=== PATIENT | female | born 1965 | race African-American/Black ===

== ENCOUNTER 2017-07-15 19:33 | Emergency (ER) | payer MEDICARE, OTHER ==
[2017-07-15] MEDS: ACETAMINOPHEN 500 MG TABLET PO (20:18)
== END 2017-07-15 23:17 | disposition home or self-care (01) ==
LOC: ER 23:17
DX: M79.661 Pain in right lower leg (principal); I25.10 Atherosclerotic heart disease of native coronary artery without angina pectoris; E11.9 Type 2 diabetes mellitus without complications; I10 Essential (primary) hypertension; E78.00 Pure hypercholesterolemia, unspecified; Z79.899 Other long term (current) drug therapy; Z88.5 Allergy status to narcotic agent
CPT/HCPCS: 93971; 99284

== ENCOUNTER → 2019-05-01 | Outpatient (CLI) | payer MEDICARE ==
[2017-07-15 22:30] VITALS: BP 117/75
--- NOTE | 2019-05-01 10:04 | KCIC ---
Bilateral digital screening mammograms: Reason for examination: Routine baseline screening. Interpretation was made with the benefit of CAD. The skin and nipples show no abnormalities. No abnormal axillary lymph nodes are seen. The breast parenchyma shows scattered fibroglandular density. (Breast density: Category B.) There are no dominant masses, suspicious calcifications or architectural distortions. Impression: No evidence of malignancy. Recommend routine screening. BI-RADS Category 1: Negative. "Our facility is accredited by the [employer] Mammography Program." This patient's information has been entered into a reminder system for the patient to be notified with the results of her examination and a target date for the next mammogram. Electronically signed by: Bernice Palma MD (05/01/2019 10:01 AM) [id number]
== END | disposition home or self-care (01) ==
LOC: KCIC MAMMO 07:55
PROVIDERS: ATTEND Family Medicine
DX: Z12.31 Encounter for screening mammogram for malignant neoplasm of breast (principal)
CPT/HCPCS: 77067

== ENCOUNTER 2020-11-17 01:35 | Emergency (ER) | payer MEDICARE, OTHER ==
[~2020-11-17] VITALS: Ht 167.6 cm; Wt 98.0 kg
--- NOTE | 2020-11-17 07:15 | ED.ADGEN ---
Past Medical History Past Medical History: No Pertinent History, CAD, Diabetes-Type II, Hypertension Additional Past Medical Histor: HIGH CHOLESTEROL Past Surgical History: Other Additional Past Surgical Histo: uterine ablation, removed lump on back of head Smoking Status: Never Smoker Alcohol Use: None Drug Use: None General Adult EDM: Chief Complaint: FLANK PAIN HPI: HPI: Patient is a 55-year-old female who arrives [facility] complaining of left-sided flank pain. Patient reports his pain has been ongoing intermittently for several months. Patient reports she visited her primary care physician on Saturday and was referred to the emergency department because of "something wrong with her kidney". Patient states her pain is worse at night when she tries to sleep. Despite this, she denies any history of fever, prodromal symptoms or contributing symptoms otherwise. Specifically she denies any genitourinary changes or history of trauma. She is awake, alert and nontoxic-appearing Review of Systems: Review of Systems: Constitutional: Denies fever or chills. [] Eyes: Denies change in visual acuity. [] HENT: Denies nasal congestion or sore throat. [] Respiratory: Denies cough or shortness of breath. [] Cardiovascular: Denies chest pain or edema. [] GI: Denies abdominal pain, nausea, vomiting, bloody stools or diarrhea. [] : Reports flank pain. Denies dysuria. [] Musculoskeletal: Denies back pain or joint pain. [] Integument: Denies rash. [] Neurologic: Denies headache, focal weakness or sensory changes. [] Endocrine: Denies polyuria or polydipsia. [] Lymphatic: Denies swollen glands. [] Psychiatric: Denies depression or anxiety. [] Current Medications: Current Medications Medications (Trade) Dose Ordered Sig/Jocelyn Start Time Stop Time Status Last Admin Dose Admin Insulin Human Isoph/Insulin Regular (HumuLIN 70-30 VIAL) 20 units BID 11/17/20 10:00 11/17/20 09:48 20 UNITS Sodium Chloride 1,000 ml @ 1,000 mls/hr 1X ONCE 11/17/20 10:00 11/17/20 10:59 11/17/20 09:30 1,000 MLS/HR Allergies: Allergies: Allergies Coded Allergies Type Severity Reaction Last Updated Verified codeine Allergy Intermediate rash 02/27/13 Yes Physical Exam: PE: Constitutional: Well developed, well nourished, no acute distress, non-toxic appearance. [] HENT: Normocephalic, atraumatic, bilateral external ears normal, oropharynx moist, no oral exudates, nose normal. [] Eyes: PERRLA, EOMI, conjunctiva normal, no discharge. [] Neck: Normal range of motion, no tenderness, supple, no stridor. [] Cardiovascular:Heart rate regular rhythm, no murmur [] Lungs & Thorax: Bilateral breath sounds clear to auscultation [] Abdomen: Bowel sounds normal, soft, no tenderness, no masses, no pulsatile masses. [] Skin: Warm, dry, no erythema, no rash. [] Back: No tenderness, no CVA tenderness. [] Extremities: No tenderness, no cyanosis, no clubbing, ROM intact, no edema. [] Neurologic: Alert and oriented X 3, normal motor function, normal sensory function, no focal deficits noted. [] Psychologic: Affect normal, judgement normal, mood normal. [] Current Patient Data: Labs: Laboratory Tests Test 11/17/20 07:30 White Blood Count 5.6 x10^3/uL (4.0-11.0) Red Blood Count 3.45 x10^6/uL (3.50-5.40) L Hemoglobin 10.1 g/dL (12.0-15.5) L Hematocrit 30.4 % (36.0-47.0) L Mean Corpuscular Volume 88 fL (79-100) Mean Corpuscular Hemoglobin 29 pg (25-35) Mean Corpuscular Hemoglobin Concent 33 g/dL (31-37) Red Cell Distribution Width 12.6 % (11.5-14.5) Platelet Count 305 x10^3/uL (140-400) Neutrophils (%) (Auto) 53 % (31-73) Lymphocytes (%) (Auto) 32 % (24-48) Monocytes (%) (Auto) 12 % (0-9) H Eosinophils (%) (Auto) 2 % (0-3) Basophils (%) (Auto) 1 % (0-3) Neutrophils # (Auto) 2.9 x10^3/uL (1.8-7.7) Lymphocytes # (Auto) 1.8 x10^3/uL (1.0-4.8) Monocytes # (Auto) 0.7 x10^3/uL (0.0-1.1) Eosinophils # (Auto) 0.1 x10^3/uL (0.0-0.7) Basophils # (Auto) 0.1 x10^3/uL (0.0-0.2) Urine Collection Type Unknown Urine Color Yellow Urine Clarity Clear Urine pH 5.5 (<5.0-8.0) Urine Specific [place] 1.020 (1.000-1.030) Urine Protein >=300 mg/dL (NEG-TRACE) Urine Glucose (UA) >=1000 mg/dL (NEG) Urine Ketones (Stick) Negative mg/dL (NEG) Urine Blood Trace (NEG) Urine Nitrite Negative (NEG) Urine Bilirubin Negative (NEG) Urine Urobilinogen Dipstick 0.2 mg/dL (0.2 mg/dL) Urine Leukocyte Esterase Negative (NEG) Urine RBC Occ /HPF (0-2) Urine WBC 5-10 /HPF (0-4) Urine Squamous Epithelial Cells Mod /LPF Urine Bacteria Few /HPF (0-FEW) Urine Hyaline Casts Moderate /HPF Urine Mucus Slight /LPF Sodium Level 131 mmol/L (136-145) L Potassium Level 4.9 mmol/L (3.5-5.1) Chloride Level 97 mmol/L (98-107) L Carbon Dioxide Level 27 mmol/L (21-32) Anion Gap 7 (6-14) Blood Urea Nitrogen 50 mg/dL (7-20) H Creatinine 2.6 mg/dL (0.6-1.0) H Estimated GFR (Cockcroft-Gault) 23.2 Glucose Level 550 mg/dL (70-99) *H Calcium Level 9.1 mg/dL (8.5-10.1) Laboratory Tests 11/17/20 07:30 Laboratory Tests 11/17/20 07:30 Vital Signs: Vital Signs Date Time Temp Pulse Resp B/P (MAP) Pulse Ox O2 Delivery O2 Flow Rate FiO2 11/17/20 09:02 62 97/59 (72) 99 Room Air 11/17/20 05:00 98.0 16 98.0 EKG: EKG: [] Heart Score: C/O Chest Pain: No Risk Factors: Risk Factors: DM, Current or recent (<one month) smoker, HTN, HLP, family history of CAD, obesity. Risk Scores: Score 0 - 3: 2.5% MACE over next 6 weeks - Discharge Home Score 4 - 6: 20.3% MACE over next 6 weeks - Admit for Clinical Observation Score 7 - 10: 72.7% MACE over next 6 weeks - Early Invasive Strategies Radiology/Procedures: Radiology/Procedures: [] Impression: [facility] [address] [place] [address] IMAGING REPORT Signed PATIENT: NATE CORDERO ACCOUNT: [id number] : 1965 LOCATION: ER AGE: 55 SEX: F EXAM STATUS: REG ER ORD. PHYSICIAN: AMELIE DELATORRE DO REASON: Left flank pain PROCEDURE: CT ABDOMEN PELVIS WO CONTRAST INDICATION: Reason: Left flank pain / Spl. Instructions: / History: COMPARISON: None. TECHNIQUE: Axial CT images were obtained through the abdomen and pelvis without intravenous contrast. One or more of the following individualized dose reduction techniques were utilized for this examination: 1. Automated exposure control; 2. Adjustment of the mA and/or kV according to patient size; 3. Use of iterative reconstruction technique. FINDINGS: Small pericardial fluid. Vascular: Calcific atherosclerosis. Hepatobiliary: High density in the gallbladder could be secondary to gallstones. Liver is prominent in size. Pancreas: No peripancreatic edema. Spleen: Calcified granulomas. Renal: No hydronephrosis. Bladder: No definite inflammatory changes to the bladder. Gastrointestinal: The rectal wall is prominent in thickness but the rectum is not distended. Distal colon is decompressed which limits evaluation of the wall. No periappendiceal inflammatory changes. Edema of subcutaneous soft tissues. Degenerative changes the spine. Degenerative changes the spine with multilevel central canal and neural foraminal stenosis. Degenerative changes of sacroiliac joints. Degenerative changes of hips. There are some hypertrophic changes and erosions at the L5-S1 facet joint bilaterally. Enlarged uterus with heterogeneity and some calcifications within. Fat-containing umbilical hernia. IMPRESSION: * No hydronephrosis or radiopaque obstructive ureter stone. * No evidence of bowel obstruction or appendicitis. The rectal wall is prominent in thickness which could be from lack of distention but cannot exclude presence of proctitis or rectal wall lesion given this prominent wall. * Enlarged lobulated appearance of the uterus most commonly from fibroids. * Degenerative changes throughout the spine. Electronically signed by: Sarbjit Maddox MD (11/17/2020 9:12 AM) [id number] DICTATED and SIGNED BY: SARBJIT MADDOX MD DATE: 11/17/20 [id number] 0 Course & Med Decision Making: Course & Med Decision Making Pertinent Labs and Imaging studies reviewed. (See chart for details) The patient remains awake, alert and in no acute distress. CT imaging does not reveal any acute pathological condition with respect to the patient's left kidney. Patient does have what is been interpreted as possible inflammatory change in the rectal vault. Despite this, the patient does not have any complaints as a relates to this region. Moreover she denies any change in her bowel/bladder habits. I did speak with her primary care physician who referred her to the emergency department for glycemic control as well as study of her kidneys as they have been in decline and the patient is a very poorly controlled/noncompliant diabetic. As a result, I did offer the patient admission to the hospital for further study into her kidney function and the patient declined stating she would prefer to follow-up with her primary care physician. I advised that she return with any change to her condition. The patient understands and has agreed to do so. She is nontoxic-appearing and stable for discharge. [] Guru Disclaimer: Guru Disclaimer: This electronic medical record was generated, in whole or in part, using a voice recognition dictation system. Departure Departure Disposition: HOME / SELF CARE / HOMELESS Condition: STABLE Referrals: CHANDLER KOLB MD (PCP) Patient Instructions: Chronic Renal Insufficiency, Flank Pain, Hyperglycemia Additional Instructions: Please follow-up with your family physician later today. Scripts Hydrocodone/Acetaminophen (Hydrocodone-Acetamin 5-325 mg) 1 Each Tablet 1 EACH PO Q6HRS for 3 Days, #12 TAB Prov: AMELIE DELATORRE DO 11/17/20 AMELIE DELATORRE DO Nov 17, 2020 07:15
[2020-11-17 07:44] LABS: BASO # 0.1 x10^3/uL (0.0-0.2); BASO % 1 % (0-3); EOS # 0.1 x10^3/uL (0.0-0.7); EOS % 2 % (0-3); HEMATOCRIT 30.4 % (36.0-47.0); HEMOGLOBIN 10.1 g/dL (12.0-15.5); LYMPH # 1.8 x10^3/uL (1.0-4.8); LYMPH % 32 % (24-48); MEAN CORPUSCULAR HEMOGLOBIN 29 pg (25-35); MEAN CORPUSCULAR HGB CONC 33 g/dL (31-37); MEAN CORPUSCULAR VOLUME 88 fL (79-100); MONO # 0.7 x10^3/uL (0.0-1.1); MONO % 12 % (0-9); NEUT # 2.9 x10^3/uL (1.8-7.7); NEUT % 53 % (31-73); PLATELET COUNT 305 x10^3/uL (140-400); RED BLOOD COUNT 3.45 x10^6/uL (3.50-5.40); RED CELL DISTRIBUTION WIDTH 12.6 % (11.5-14.5); WHITE BLOOD COUNT 5.6 x10^3/uL (4.0-11.0)
[2020-11-17 07:51] LABS: BILIRUBIN,URINE NEGATIVE (NEG); CLARITY,URINE CLEAR; COLOR,URINE YELLOW; NITRITE,URINE NEGATIVE (NEG); PH,URINE 5.5 (<5.0-8.0); PROTEIN,URINE >=300 mg/dL (NEG-TRACE); UROBILINOGEN,URINE 0.2 mg/dL (0.2 mg/dL)
[2020-11-17 08:05] LABS: CALCIUM 9.1 mg/dL (8.5-10.1); CREATININE 2.6 mg/dL (0.6-1.0); GFR 23.2; POTASSIUM 4.9 mmol/L (3.5-5.1)
[2020-11-17 08:08] LABS: BACTERIA,URINE FEW /HPF (0-FEW); RBC,URINE OCC /HPF (0-2)
[2020-11-17 08:09] LABS: HYALINE CASTS, URINE MODERATE /HPF
--- NOTE | 2020-11-17 09:15 | RAD ---
INDICATION: Reason: Left flank pain / Spl. Instructions: / History: COMPARISON: None. TECHNIQUE: Axial CT images were obtained through the abdomen and pelvis without intravenous contrast. One or more of the following individualized dose reduction techniques were utilized for this examinat ion: 1. Automated exposure control; 2. Adjustment of the mA and/or kV according to patient size; 3 . Use of iterative reconstruction technique. FINDINGS: Small pericardial fluid. Vascular: Calcific atherosclerosis. Hepatobiliary: High density in the gallbladder could be secondary to gallstones. Liver is prominent i n size. Pancreas: No peripancreatic edema. Spleen: Calcified granulomas. Renal: No hydronephrosis. Bladder: No definite inflammatory changes to the bladder. Gastrointestinal: The rectal wall is prominent in thickness but the rectum is not distended. Distal c olon is decompressed which limits evaluation of the wall. No periappendiceal inflammatory changes. Ed radu of subcutaneous soft tissues. Degenerative changes the spine. Degenerative changes the spine with multilevel central canal and neural foraminal stenosis. Degenerat mae changes of sacroiliac joints. Degenerative changes of hips. There are some hypertrophic changes a nd erosions at the L5-S1 facet joint bilaterally. Enlarged uterus with heterogeneity and some calcifications within. Fat-containing umbilical hernia. IMPRESSION: * No hydronephrosis or radiopaque obstructive ureter stone. * No evidence of bowel obstruction or appendicitis. The rectal wall is prominent in thickness which could be from lack of distention but cannot exclude presence of proctitis or rectal wall lesion given this prominent wall. * Enlarged lobulated appearance of the uterus most commonly from fibroids. * Degenerative changes throughout the spine. Electronically signed by: Jose Kendrick MD (11/17/2020 9:12 AM) [id number]
[2020-11-17] MEDS ORDERED: HYDR-2759 PO (09:50)
[2020-11-17] MEDS ORDERED: INSULIN NPH/REG HUM 70/30 300 UNITS/3 ML VIAL. SQ SCH (10:00)
[2020-11-17] MEDS ORDERED: IV NORMAL SALINE 1000ML BAG 1,000 ML IV ONE (10:00)
[2020-11-17 10:02] VITALS: BP 143/75
== END 2020-11-17 10:30 | disposition home or self-care (01) ==
LOC: ER 01:35
DX: R10.9 Unspecified abdominal pain (principal); I25.10 Atherosclerotic heart disease of native coronary artery without angina pectoris; E11.9 Type 2 diabetes mellitus without complications; I10 Essential (primary) hypertension; E78.00 Pure hypercholesterolemia, unspecified; Z88.5 Allergy status to narcotic agent
CPT/HCPCS: 36415; 74176; 80048; 81001; 85025; 87086; 96360; 96372; 99284; J1815; J7030; 87077

== ENCOUNTER 2020-11-29 12:41 | Inpatient (IN) | payer OTHER ==
[~2020-11-29] VITALS: Ht 167.6 cm; Wt 105.8 kg
[~2020-11-29 12:41] MED LIST: HYDR-2759 PO
[2020-11-29 13:38] LABS: BILIRUBIN,URINE NEGATIVE (NEG); CLARITY,URINE CLEAR; COLOR,URINE YELLOW; NITRITE,URINE NEGATIVE (NEG); PROTEIN,URINE >=300 mg/dL (NEG-TRACE); UROBILINOGEN,URINE 0.2 mg/dL (0.2 mg/dL)
--- NOTE | 2020-11-29 13:48 | RAD ---
EXAM: CHEST 1 VIEW History: Shortness of breath COMPARISON: 04/19/2016. TECHNIQUE: Single portable radiograph of the chest Findings/ impression: Low lung volumes and technique accentuates heart size and pulmonary vascularity. Mild prominent bilat eral digital lung markings likely mild congestive changes or interstitial infiltrates. Electronically signed by: Michael Segura MD (11/29/2020 1:46 PM) [id number]
[2020-11-29 13:53] LABS: BACTERIA,URINE MODERATE /HPF (0-FEW)
[2020-11-29 13:54] LABS: WBC,URINE OCC /HPF (0-4)
[2020-11-29 14:04] LABS: BASO % 1 % (0-3); EOS # 0.3 x10^3/uL (0.0-0.7); EOS % 3 % (0-3); HEMATOCRIT 26.3 % (36.0-47.0); HEMOGLOBIN 8.9 g/dL (12.0-15.5); LYMPH % 10 % (24-48); MEAN CORPUSCULAR HEMOGLOBIN 29 pg (25-35); MEAN CORPUSCULAR HGB CONC 34 g/dL (31-37); MEAN CORPUSCULAR VOLUME 86 fL (79-100); MONO # 0.8 x10^3/uL (0.0-1.1); MONO % 7 % (0-9); NEUT # 8.2 x10^3/uL (1.8-7.7); NEUT % 80 % (31-73); PLATELET COUNT 392 x10^3/uL (140-400); RED BLOOD COUNT 3.06 x10^6/uL (3.50-5.40); RED CELL DISTRIBUTION WIDTH 13.3 % (11.5-14.5); WHITE BLOOD COUNT 10.3 x10^3/uL (4.0-11.0)
[2020-11-29 14:21] LABS: CALCIUM 8.6 mg/dL (8.5-10.1); GFR 31.4; POTASSIUM 4.9 mmol/L (3.5-5.1)
[2020-11-29 14:26] LABS: INFLUENZA A PATIENT NEGATIVE (NEGATIVE); INFLUENZA B PATIENT NEGATIVE (NEGATIVE)
[2020-11-29 14:34] LABS: ALBUMIN 2.5 g/dL (3.4-5.0); ALBUMIN/GLOBULIN RATIO 0.5 (1.0-1.7); MAGNESIUM 1.8 mg/dL (1.8-2.4); TOTAL BILIRUBIN 0.8 mg/dL (0.2-1.0); TOTAL PROTEIN 7.1 g/dL (6.4-8.2)
--- NOTE | 2020-11-29 14:34 | PHYS DOC ---
Past Medical History Past Medical History: No Pertinent History, CAD, Diabetes-Type II, Hypertension Additional Past Medical Histor: HIGH CHOLESTEROL Past Surgical History: Other Additional Past Surgical Histo: uterine ablation, removed lump on back of head Smoking Status: Never Smoker Alcohol Use: None Drug Use: None General Adult EDM: Chief Complaint: SHORTNESS OF BREATH HPI: HPI: Patient is a 55 year old female who present to ER for evaluation of trouble breathing with exertion, nonproductive cough since yesterday. Patient denies any fever. Patient had Covid vaccine in May of this year. Patient denies abdominal pain, no nausea vomiting. Patient has history hypertension, coronary artery disease. Patient did complain of trouble breathing whenever she exerted herself. Patient does complain of sharp chest pain when she coughs or taking deep breaths Review of Systems: Review of Systems: Constitutional: Denies fever or chills. [] Eyes: Denies change in visual acuity. [] HENT: Denies nasal congestion or sore throat. [] Respiratory: Positive for nonproductive cough and trouble breathing Cardiovascular: Positive for chest pain and edema GI: Denies abdominal pain, nausea, vomiting, bloody stools or diarrhea. [] : Denies dysuria. [] Musculoskeletal: Denies back pain or joint pain. [] Integument: Denies rash. [] Neurologic: Denies headache, focal weakness or sensory changes. [] Endocrine: Denies polyuria or polydipsia. [] Lymphatic: Denies swollen glands. [] Psychiatric: Denies depression or anxiety. [] Heart Score: C/O Chest Pain: Yes HEART Score for Chest Pain: HEART Score for Chest Pain Response (Comments) Value History Slighlty/Non-Suspicious 0 ECG Nonspecific Repolarizatio 1 Age >45 - < 65 1 Risk Factors >3 Risk Factors or Hx CAD 2 Troponin >1-<3x Normal Limit 1 Total 5 Risk Factors: Risk Factors: DM, Current or recent (<one month) smoker, HTN, HLP, family history of CAD, obesity. Risk Scores: Score 0 - 3: 2.5% MACE over next 6 weeks - Discharge Home Score 4 - 6: 20.3% MACE over next 6 weeks - Admit for Clinical Observation Score 7 - 10: 72.7% MACE over next 6 weeks - Early Invasive Strategies Allergies: Allergies: Allergies Coded Allergies Type Severity Reaction Last Updated Verified codeine Allergy Intermediate rash 02/27/13 Yes Physical Exam: PE: Constitutional: Well developed, well nourished, no acute distress, non-toxic appearance. [] HENT: Normocephalic, atraumatic, bilateral external ears normal, oropharynx moist, no oral exudates, nose normal. [] Eyes: PERRLA, EOMI, conjunctiva normal, no discharge. [] Neck: Normal range of motion, no tenderness, supple, no stridor. [] Cardiovascular:Heart rate regular rhythm, no murmur [] Lungs & Thorax: Bilateral breath sounds clear to auscultation [] Abdomen: Bowel sounds normal, soft, no tenderness, no masses, no pulsatile masses. [] Skin: Warm, dry, no erythema, no rash. [] Back: No tenderness, no CVA tenderness. [] Extremities: No tenderness, no cyanosis, no clubbing, ROM intact, pitting edema 2+ bilateral legs Neurologic: Alert and oriented X 3, normal motor function, normal sensory function, no focal deficits noted. [] Psychologic: Affect normal, judgement normal, mood normal. [] Current Patient Data: Labs: Laboratory Tests Test 11/29/20 13:05 11/29/20 13:50 Urine Collection Type Unknown Urine Color Yellow Urine Clarity Clear Urine pH 7.0 (<5.0-8.0) Urine Specific [place] 1.015 (1.000-1.030) Urine Protein >=300 mg/dL (NEG-TRACE) Urine Glucose (UA) >=1000 mg/dL (NEG) Urine Ketones (Stick) Negative mg/dL (NEG) Urine Blood Moderate (NEG) Urine Nitrite Negative (NEG) Urine Bilirubin Negative (NEG) Urine Urobilinogen Dipstick 0.2 mg/dL (0.2 mg/dL) Urine Leukocyte Esterase Negative (NEG) Urine RBC 3-5 /HPF (0-2) Urine WBC Occ /HPF (0-4) Urine Squamous Epithelial Cells Few /LPF Urine Bacteria Moderate /HPF (0-FEW) White Blood Count 10.3 x10^3/uL (4.0-11.0) Red Blood Count 3.06 x10^6/uL (3.50-5.40) L Hemoglobin 8.9 g/dL (12.0-15.5) L Hematocrit 26.3 % (36.0-47.0) L Mean Corpuscular Volume 86 fL (79-100) Mean Corpuscular Hemoglobin 29 pg (25-35) Mean Corpuscular Hemoglobin Concent 34 g/dL (31-37) Red Cell Distribution Width 13.3 % (11.5-14.5) Platelet Count 392 x10^3/uL (140-400) Neutrophils (%) (Auto) 80 % (31-73) H Lymphocytes (%) (Auto) 10 % (24-48) L Monocytes (%) (Auto) 7 % (0-9) Eosinophils (%) (Auto) 3 % (0-3) Basophils (%) (Auto) 1 % (0-3) Neutrophils # (Auto) 8.2 x10^3/uL (1.8-7.7) H Lymphocytes # (Auto) 1.0 x10^3/uL (1.0-4.8) Monocytes # (Auto) 0.8 x10^3/uL (0.0-1.1) Eosinophils # (Auto) 0.3 x10^3/uL (0.0-0.7) Basophils # (Auto) 0.0 x10^3/uL (0.0-0.2) Sodium Level 134 mmol/L (136-145) L Potassium Level 4.9 mmol/L (3.5-5.1) Chloride Level 101 mmol/L (98-107) Carbon Dioxide Level 21 mmol/L (21-32) Anion Gap 12 (6-14) Blood Urea Nitrogen 43 mg/dL (7-20) H Creatinine 2.0 mg/dL (0.6-1.0) H Estimated GFR (Cockcroft-Gault) 31.4 BUN/Creatinine Ratio 22 (6-20) H Glucose Level 445 mg/dL (70-99) H Lactic Acid Level 1.9 mmol/L (0.4-2.0) Calcium Level 8.6 mg/dL (8.5-10.1) Magnesium Level Pending Total Bilirubin Pending Aspartate Amino Transferase (AST) Pending Alanine Aminotransferase (ALT) Pending Alkaline Phosphatase Pending Troponin I Quantitative 0.109 ng/mL (0.000-0.055) GV-Szo-E-Type Natriuretic Peptide 3473 pg/mL (0-124) H Total Protein Pending Albumin Pending Albumin/Globulin Ratio Pending Influenza Type A Antigen Negative (NEGATIVE) Influenza Type B Antigen Negative (NEGATIVE) SARS-CoV-2 Antigen (Rapid) Negative (NEGATIVE) Laboratory Tests 11/29/20 13:50 Laboratory Tests 11/29/20 13:50 Vital Signs: Vital Signs Date Time Temp Pulse Resp B/P (MAP) Pulse Ox O2 Delivery O2 Flow Rate FiO2 11/29/20 13:05 98.6 123 32 212/100 (137) 88 Room Air 98.6 EKG: EKG: EKG was done at 1606, heart rate of 125 bpm, sinus tachycardia, no ST segment elevation. Radiology/Procedures: Radiology/Procedures: [facility] [address] [place] [address] IMAGING REPORT Signed PATIENT: NATE CORDERO ACCOUNT: [id number] : 1965 LOCATION: ER AGE: 55 SEX: F EXAM STATUS: REG ER ORD. PHYSICIAN: STEPHY MERA DO REASON: shortness of air PROCEDURE: CHEST AP ONLY EXAM: CHEST 1 VIEW History: Shortness of breath COMPARISON: 04/19/2016. TECHNIQUE: Single portable radiograph of the chest Findings/ impression: Low lung volumes and technique accentuates heart size and pulmonary vascularity. Mild prominent bilateral digital lung markings likely mild congestive changes or interstitial infiltrates. Electronically signed by: Michael Segura MD (11/29/2020 1:46 PM) [id number] DICTATED and SIGNED BY: MICHAEL SEGURA MD DATE: 11/29/20 [id number] 0 Course & Med Decision Making: Course & Med Decision Making Pertinent Labs and Imaging studies reviewed. (See chart for details) Patient is a 55-year-old female who present to ER due to trouble breathing congestion, nonproductive cough, patient was found to be hypertensive, chest x-ray showed pulmonary edema pattern, patient had elevated BNP and troponin. EKG showed no ST segment elevation. Patient will be admitted to hospital service for further evaluation and treatment. Discussed with the hospitalist on-call Dr. Hoyt who agreed to admit the patient Guru Disclaimer: Guru Disclaimer: This electronic medical record was generated, in whole or in part, using a voice recognition dictation system. Departure Departure Impression: Primary Impression: CHF exacerbation Additional Impression: Hypertensive urgency Disposition: 09 ADMITTED INPATIENT Admitting Physician: WILLOW (Dr. Addy Gabriel ) Condition: IMPROVED Referrals: CHANDLER KOLB MD (PCP) STEPHY MERA DO Nov 29, 2020 14:34
[2020-11-29] MEDS ORDERED: hydrALAZINE 20 MG/ML VIAL. IVP ONE (14:45)
--- NOTE | 2020-11-29 15:06 | PDOC1 ---
History and Physical Date of Admission Date of Admission DATE: 11/29/20 TIME: 15:05 Identification/Chief Complaint Chief Complaint Shortness of breath Source Source: Patient History of Present Illness History of Present Illness Ms Paul is a 55 year old female w/ PMHx DM2, HTN, HLD, glaucoma who present to ER c/o progressive difficulty breathing with exertion and now at rest. She has had a white frothy cough for the last day. Patient denies any fever. She has had progressive weight gain, difficulty controlling her blood sugar and swelling of her abdomen and legs for the past month. No recent travel or sick co ntacts, no prolonged immobilization. Patient denies abdominal pain, no nausea vomiting. She does notice abdominal swelling associated with her leg swelling or shortness of breath. Difficulty getting a deep breath. Had [employer] vaccine in May 2020. She does note based on recent labs she was told she has kidney injury and had a referral to outpatient nephrology coming up 12/02/2020 Initial vital signs temp 98.6 F pulse 123 beats minute respirations 32/min blood pressure 212/110 O2 saturation less than 88% on room air improved to 92% with 2 L nasal cannula oxygen. Given IV hydralazine with improvement of systolic blood pressure 184/89. Of note patient says she did not take any of her home medications today and does take metoprolol succinate 100 mg, amlodipine 10 mg, atorvastatin 80 mg, gabapentin 300 mg 3 times daily, chlorthalidone 50 mg daily, losartan 100 mg daily, Metformin 1000 mg twice daily, lispro 40 U every morning and Levemir 70 U nightly Travatan and latanoprost nightly and a baby aspirin daily. Labs with WBC 10.3, Hb 8.9, platelets 392, NA 134, K4.9, BUN 43, CR 2, glucose 445, albumin 2.5, lactate 1.9, NT proBNP 3473, troponin 0.109, rapid influenza negative, rapid COVID-19 negative, urinalysis with glucosuria proteinuria blood negative leuk esterase negative nitrites. Chest radiograph with bilateral interstitial changes consistent with congestion. EKG sinus tachycardia rate of 125 bpm T WI in lead I and T flattening in lead II no ST segment abnormalities. QTc 435. Admitted for further care. Past Medical History Cardiovascular: HTN, Hyperlipidemia ENT: Allergic Rhinitis Endocrine: Diabetes Past Surgical History Past Surgical History: Other (Uterine ablation, I&D head abscess) Family History Family History: Diabetes, Heart Disease (Mother), High Cholestrol, Hypertension Social History Smoke: No ALCOHOL: none Drugs: None Current Problem List Problem List Problems Medical Problems: (1) CHF exacerbation Status: Acute (2) Hypertensive urgency Status: Acute Current Medications Current Medications Current Medications Hydralazine HCl (Apresoline Inj) 20 mg 1X ONCE IVP Last administered on 11/29/20at 14:56; Start 11/29/20 at 14:45; Stop 11/29/20 at 14:46; Status DC Active Scripts Active Hydrocodone-Acetamin 5-325 mg (Hydrocodone/Acetaminophen) 1 Each Tablet 1 Each PO Q6HRS 3 Days Allergies Allergies: Coded Allergies: codeine (Verified Allergy, Intermediate, rash, 02/27/13) ROS General: YES: Fatigue; No: Chills, Night Sweats, Malaise, Appetite, Other PSYCHOLOGICAL ROS: No: Anxiety, Behavioral Disorder, Concentration difficultie, Decreased libido, Depression, Disorientation, Hallucinations, Hostility, Irritablity, Memory difficulties, Mood Swings, Obsessive thoughts, Physical abuse, Sexual abuse, Sleep disturbances, Suicidal ideation, Other Eyes: No Blurry vision, No Decreased vision, No Double vision, No Dry eyes, No Excessive tearing, No Eye Pain, No Itchy Eyes, No Loss of vision, No Photophobia, No Scotomata, No Uses contacts, No Uses glasses, No Other HEENT: No: Heacaches, Visual Changes, Hearing change, Nasal congestion, Nasal discharge, Oral lesions, Sinus pain, Sore Throat, Epistaxis, Sneezing, Snoring, Tinnitus, Vertigo, Vocal changes, Other ALLERGY AND IMMUNOLOGY: No: Hives, Insect Bite Sensitivity, Itchy/Watery Eyes, Nasal Congestion, Post Nasal Drip, Seasonal Allergies, Other Hematological and Lymphatic: No: Bleeding Problems, Blood Clots, Blood Transfusions, Brusing, Night Sweats, Pallor, Swollen Lymph Nodes, Other ENDOCRINE: No: Breast Changes, Galactorrhea, Hair Pattern Changes, Hot Flashes, Malaise/lethargy, Mood Swings, Palpitations, Polydipsia/polyuria, Skin Changes, Temperature Intolerance, Unexpected Weight Changes, Other Breast: No New/Changing Breast Lumps, No Nipple changes, No Nipple discharge, No Other Respiratory: YES: Cough, Pleuritic Pain, Shortness of breath, SOB with excertion, Tachypnea; No: Hemoptysis, Orthopnea, Sputum Changes, Stridor, Wheezing, Other Cardiovascular: yes Orthopnea, yes Paroxysmal Noc. Dyspnea, yes Edema; No Chest Pain, No Palpitations, No Lt Headedness, No Other Gastrointestinal: No Nausea, No Vomiting, No Abdominal Pain, No Diarrhea, No Constipation, No Melena, No Hematochezia, No Other Genitourinary: No Dysuria, No Frequency, No Incontinence, No Hematuria, No Retention, No Discharge, No Urgency, No Pain, No Flank Pain, No Other, No , No , No , No , No , No , No Musculoskeletal: No Gait Disturbance, No Joint Pain, No Joint Stiffness, No Joint Swelling, No Muscle Pain, No Muscular Weakness, No Pain In:, No Swelling In:, No Other Neurological: No Behavorial Changes, No Bowel/Bladder ControlChng, No Confusion, No Dizziness, No Gait Disturbance, No Headaches, No Impaired Coord/balance, No Memory Loss, No Numbness/Tingling, No Seizures, No Speech Problems, No Tremors, No Visual Changes, No Weakness, No Other Skin: No Dry Skin, No Eczema, No Hair Changes, No Lumps, No Mole Changes, No Mottling, No Nail Changes, No Pruritus, No Rash, No Skin Lesion Changes, No Other, No Acne Physical Exam General: Alert, Oriented X3, Cooperative, moderate distress HEENT: Atraumatic, PERRLA, EOMI, Mucous membr. moist/pink Lungs: Other (bibasilar crakles) Heart: S1S2, RRR, no thrills, no rubs, no gallops, no murmurs Abdomen: Normal bowel sounds, Soft, No tenderness, No hepatosplenomegaly, No masses Extremities: No clubbing, No cyanosis, Normal pulses, No tenderness/swelling, Other (2+ edema) Skin: No rashes, No breakdown, No significant lesion Neuro: Normal gait, Normal speech, Strength at 5/5 X4 ext, Normal tone, Sensation intact, Cranial nerves 3-12 NL, Reflexes 2+ Psych/Mental Status: Mental status NL, Mood NL Vitals Vitals Vital Signs Date Time Temp Pulse Resp B/P (MAP) Pulse Ox O2 Delivery O2 Flow Rate FiO2 10//21 14:56 110 184/89 11/29/20 13:05 98.6 32 88 Room Air 98.6 Labs Labs Laboratory Tests Test 11/29/20 13:05 11/29/20 13:50 Urine Collection Type Unknown Urine Color Yellow Urine Clarity Clear Urine pH 7.0 (<5.0-8.0) Urine Specific [place] 1.015 (1.000-1.030) Urine Protein >=300 mg/dL (NEG-TRACE) Urine Glucose (UA) >=1000 mg/dL (NEG) Urine Ketones (Stick) Negative mg/dL (NEG) Urine Blood Moderate (NEG) Urine Nitrite Negative (NEG) Urine Bilirubin Negative (NEG) Urine Urobilinogen Dipstick 0.2 mg/dL (0.2 mg/dL) Urine Leukocyte Esterase Negative (NEG) Urine RBC 3-5 /HPF (0-2) Urine WBC Occ /HPF (0-4) Urine Squamous Epithelial Cells Few /LPF Urine Bacteria Moderate /HPF (0-FEW) White Blood Count 10.3 x10^3/uL (4.0-11.0) Red Blood Count 3.06 x10^6/uL (3.50-5.40) Hemoglobin 8.9 g/dL (12.0-15.5) Hematocrit 26.3 % (36.0-47.0) Mean Corpuscular Volume 86 fL (79-100) Mean Corpuscular Hemoglobin 29 pg (25-35) Mean Corpuscular Hemoglobin Concent 34 g/dL (31-37) Red Cell Distribution Width 13.3 % (11.5-14.5) Platelet Count 392 x10^3/uL (140-400) Neutrophils (%) (Auto) 80 % (31-73) Lymphocytes (%) (Auto) 10 % (24-48) Monocytes (%) (Auto) 7 % (0-9) Eosinophils (%) (Auto) 3 % (0-3) Basophils (%) (Auto) 1 % (0-3) Neutrophils # (Auto) 8.2 x10^3/uL (1.8-7.7) Lymphocytes # (Auto) 1.0 x10^3/uL (1.0-4.8) Monocytes # (Auto) 0.8 x10^3/uL (0.0-1.1) Eosinophils # (Auto) 0.3 x10^3/uL (0.0-0.7) Basophils # (Auto) 0.0 x10^3/uL (0.0-0.2) Sodium Level 134 mmol/L (136-145) Potassium Level 4.9 mmol/L (3.5-5.1) Chloride Level 101 mmol/L (98-107) Carbon Dioxide Level 21 mmol/L (21-32) Anion Gap 12 (6-14) Blood Urea Nitrogen 43 mg/dL (7-20) Creatinine 2.0 mg/dL (0.6-1.0) Estimated GFR (Cockcroft-Gault) 31.4 BUN/Creatinine Ratio 22 (6-20) Glucose Level 445 mg/dL (70-99) Lactic Acid Level 1.9 mmol/L (0.4-2.0) Calcium Level 8.6 mg/dL (8.5-10.1) Magnesium Level 1.8 mg/dL (1.8-2.4) Total Bilirubin 0.8 mg/dL (0.2-1.0) Aspartate Amino Transf (AST/SGOT) 19 U/L (15-37) Alanine Aminotransferase (ALT/SGPT) 23 U/L (14-59) Alkaline Phosphatase 92 U/L (46-116) Troponin I Quantitative 0.109 ng/mL (0.000-0.055) HY-Dqk-L-Type Natriuretic Peptide 3473 pg/mL (0-124) Total Protein 7.1 g/dL (6.4-8.2) Albumin 2.5 g/dL (3.4-5.0) Albumin/Globulin Ratio 0.5 (1.0-1.7) Influenza Type A Antigen Negative (NEGATIVE) Influenza Type B Antigen Negative (NEGATIVE) SARS-CoV-2 Antigen (Rapid) Negative (NEGATIVE) Laboratory Tests Test 11/29/20 13:05 11/29/20 13:50 Urine Collection Type Unknown Urine Color Yellow Urine Clarity Clear Urine pH 7.0 (<5.0-8.0) Urine Specific [place] 1.015 (1.000-1.030) Urine Protein >=300 mg/dL (NEG-TRACE) Urine Glucose (UA) >=1000 mg/dL (NEG) Urine Ketones (Stick) Negative mg/dL (NEG) Urine Blood Moderate (NEG) Urine Nitrite Negative (NEG) Urine Bilirubin Negative (NEG) Urine Urobilinogen Dipstick 0.2 mg/dL (0.2 mg/dL) Urine Leukocyte Esterase Negative (NEG) Urine RBC 3-5 /HPF (0-2) Urine WBC Occ /HPF (0-4) Urine Squamous Epithelial Cells Few /LPF Urine Bacteria Moderate /HPF (0-FEW) White Blood Count 10.3 x10^3/uL (4.0-11.0) Red Blood Count 3.06 x10^6/uL (3.50-5.40) Hemoglobin 8.9 g/dL (12.0-15.5) Hematocrit 26.3 % (36.0-47.0) Mean Corpuscular Volume 86 fL (79-100) Mean Corpuscular Hemoglobin 29 pg (25-35) Mean Corpuscular Hemoglobin Concent 34 g/dL (31-37) Red Cell Distribution Width 13.3 % (11.5-14.5) Platelet Count 392 x10^3/uL (140-400) Neutrophils (%) (Auto) 80 % (31-73) Lymphocytes (%) (Auto) 10 % (24-48) Monocytes (%) (Auto) 7 % (0-9) Eosinophils (%) (Auto) 3 % (0-3) Basophils (%) (Auto) 1 % (0-3) Neutrophils # (Auto) 8.2 x10^3/uL (1.8-7.7) Lymphocytes # (Auto) 1.0 x10^3/uL (1.0-4.8) Monocytes # (Auto) 0.8 x10^3/uL (0.0-1.1) Eosinophils # (Auto) 0.3 x10^3/uL (0.0-0.7) Basophils # (Auto) 0.0 x10^3/uL (0.0-0.2) Sodium Level 134 mmol/L (136-145) Potassium Level 4.9 mmol/L (3.5-5.1) Chloride Level 101 mmol/L (98-107) Carbon Dioxide Level 21 mmol/L (21-32) Anion Gap 12 (6-14) Blood Urea Nitrogen 43 mg/dL (7-20) Creatinine 2.0 mg/dL (0.6-1.0) Estimated GFR (Cockcroft-Gault) 31.4 BUN/Creatinine Ratio 22 (6-20) Glucose Level 445 mg/dL (70-99) Lactic Acid Level 1.9 mmol/L (0.4-2.0) Calcium Level 8.6 mg/dL (8.5-10.1) Magnesium Level 1.8 mg/dL (1.8-2.4) Total Bilirubin 0.8 mg/dL (0.2-1.0) Aspartate Amino Transf (AST/SGOT) 19 U/L (15-37) Alanine Aminotransferase (ALT/SGPT) 23 U/L (14-59) Alkaline Phosphatase 92 U/L (46-116) Troponin I Quantitative 0.109 ng/mL (0.000-0.055) XR-Ldi-C-Type Natriuretic Peptide 3473 pg/mL (0-124) Total Protein 7.1 g/dL (6.4-8.2) Albumin 2.5 g/dL (3.4-5.0) Albumin/Globulin Ratio 0.5 (1.0-1.7) Influenza Type A Antigen Negative (NEGATIVE) Influenza Type B Antigen Negative (NEGATIVE) SARS-CoV-2 Antigen (Rapid) Negative (NEGATIVE) Images Images Chest radiograph: Low lung volumes and technique accentuates heart size and pulmonary vascularity. Mild prominent bilateral digital lung markings likely mild congestive changes or interstitial infiltrates. VTE Prophylaxis Ordered VTE Prophylaxis Devices: No VTE Pharmacological Prophylaxi: Yes Assessment/Plan Assessment/Plan A/P: Acute respiratory failure with hypoxia - likely due to pulmonary edema due to acute diastolic CHF. Bronchitis on differential as well, though she does not use home inhalers, no smoke exposure no sick contacts. Will r/o COVID 19 breakthrough as well. Diurese with furosemide. Shortness of breath - Likely related to above from pulmonary edema and acute diastolic CHF from hypertension. Less likely infectious given insidious onset a nd sudden worsening. Will r/o DVT with venous dopplers and consider VQ scan, though tachcardia likely due to not taking toprol today Hypertensive emergency - with elevated troponin and JADON, improved with IV hydralazine, will cont prn JADON - recently noted, but has not improved. Likely vasomotor nephropathy from cardiorenal syndrome. Will attempt diuresis given clinical CHF symptoms with cardiology and nephrology consultation. She may have CKD from diabetic and hypertensive nephropathy underlying as well. Hyponatremia - likely hypervolemic. Will diurese. Consult nephrology for JADON vs CKD Elevated troponin - likely demand ischemia from BP and hypoxia, will trend. Maintain telemetry. Cont home ASA and BB. Severe protein calorie malnutrition - possibly low albumin state due to nephropathy. Nephrology consulted Anemia - likely of chronic disease, will check iron levels Type 2 diabetes with hyperglycemia - will hold metformin for JADON. Basal bolus plus insulin while inpatient HLD - cont statin Glaucoma - continue nightly GTT Allergic rhinitis - cont home singulair FEN - ADA diet PPX - heparin FULL CODE Dispo - inpatient for above Justifications for Admission Other Justification ISABELLA MORGAN MD Nov 29, 2020 15:06
[2020-11-29] MEDS ORDERED: FUROSEMIDE 40 MG/4 ML VIAL. IVP ONE (15:30)
[2020-11-29] MEDS ORDERED: DEXTROSE 50% 25 GM / 50ML DISP.SYRIN. IV PRN (15:30)
[2020-11-29] MEDS ORDERED: ACETAMINOPHEN 325 MG TABLET. PO PRN (15:30)
[2020-11-29] MEDS ORDERED: ONDANSETRON PF 4 MG/2 ML VIAL. IVP PRN (15:30)
[2020-11-29] MEDS ORDERED: METOPROLOL SUCC 24HR ER 100 MG TAB.ER.24H. PO ONE (15:45)
[2020-11-29] MEDS ORDERED: NITROGLYCERIN SUBLINGUAL 0.4 MG BOTTLE OF 25. SL PRN (16:15)
[2020-11-29] MEDS ORDERED: ZOLPIDEM 5 MG TABLET. PO PRN (16:15)
[2020-11-29] MEDS ORDERED: ASPIRIN 325 MG TABLET PO ONE (16:15)
--- NOTE | 2020-11-29 16:28 | RAD ---
EXAM: Bilateral lower extremity venous Doppler sonogram. HISTORY: Pain and swelling. TECHNIQUE: Gonzalez scale and color Doppler sonographic evaluation of the bilateral lower extremity veins with spectral waveform analysis was performed. FINDINGS: There is normal color flow, normal compressibility and there are normal spectral waveforms in the common femoral, superficial femoral, popliteal, posterior tibial and greater saphenous veins. IMPRESSION: No Doppler evidence of lower extremity deep venous thrombosis. Electronically signed by: Suma Mcclain MD (11/29/2020 4:25 PM) [facility]
[2020-11-29 17:45] VITALS: BP 167/95
[2020-11-29] MEDS: INSULIN LISPRO 300 UNITS/3 ML VIAL. SQ SCH ×2 (17:58→17:59)
[2020-11-29] MEDS: hydrALAZINE 20 MG/ML VIAL. IVP PRN (18:42)
[2020-11-29 19:45] VITALS: BP 140/71
[2020-11-29] MEDS: INSULIN GLARGINE SYRINGE. SQ SCH (21:00)
[2020-11-29] MEDS: HEPARIN for SUB-Q USE 5,000 UNIT/ML VIAL. SQ SCH (21:48)
[2020-11-29] MEDS ORDERED: AMLO-187 PO (22:20)
[2020-11-29] MEDS ORDERED: ATOR80TA72 PO (22:32)
[2020-11-29] MEDS ORDERED: MONT10TA49 PO (22:33)
[2020-11-29] MEDS ORDERED: OMEG1CAP38 PO (22:34)
[2020-11-29] MEDS ORDERED: EMPA25TA PO (22:34)
[2020-11-29] MEDS ORDERED: CYCL10TA2 PO (22:43)
[2020-11-29] MEDS ORDERED: GABA600T7 PO (22:43)
[2020-11-29] MEDS ORDERED: CHLO25TA10 PO (22:44)
[2020-11-29] MEDS ORDERED: CLON0.2T PO (22:45)
[2020-11-29] MEDS ORDERED: METO-247 PO (22:47)
[2020-11-29] MEDS ORDERED: MELO15TA23 PO (22:48)
[2020-11-29] MEDS ORDERED: METF10007 PO (22:49)
[2020-11-29] MEDS ORDERED: CEPH500T PO (22:50)
[2020-11-29] MEDS ORDERED: INSU100V31 SQ ×2 (22:53→22:56)
[2020-11-29] MEDS ORDERED: INSU100V13 SQ (22:56)
[2020-11-29 23:40] VITALS: BP 148/91
[2020-11-30 03:10] VITALS: BP 168/81
[2020-11-30 04:40] LABS: CALCIUM 8.6 mg/dL (8.5-10.1); GFR 31.4; POTASSIUM 4.5 mmol/L (3.5-5.1)
[2020-11-30] MEDS: HEPARIN for SUB-Q USE 5,000 UNIT/ML VIAL. SQ SCH ×3 (06:34→23:46)
[2020-11-30 07:00] VITALS: BP 160/94
--- NOTE | 2020-11-30 09:25 | PDOC2 ---
BERE WOODSON DIRECTOR OF KNOWLEDGE MANAGEMENT 11/30/20 0925: CARDIAC CONSULT DATE OF CONSULT Date of Consult DATE: 11/30/20 TIME: 09:09 REASON FOR CONSULT Reason for Consult: possible new CHF REFERRING PHYSICIAN Referring Physician: Nery SOURCE Source: Chart review HISTORY OF PRESENT ILLNESS HISTORY OF PRESENT ILLNESS This is a pleasant 55 yo female admitted for complains of [id number] of breath. This has been going on in the last week worse in the last few days, gained at least 10 pounds in just about 4 days with leg swelling and PND. No chest pain but has been having some palpitations. She could not really tell me about the hx of his renal function. No prior hx of CAD, VTE nor arrhythmias. She did tell me that she has been having issues with high BP and her medications have been getting adjusted and still has been high. She has been having coughing with thick white secretions and has bee urinating more. Her SOA is worse with exertion and has been feeling bloated with nauea. No vomiting diarrhea, fever or chills. . She has not been tested FANTA. She has been vaccinated for covid-19. PAST MEDICAL HISTORY Cardiovascular: HTN, Hyperlipidemia CENTRAL NERVOUS SYSTEM: Periperal neuropathy, Other (autonomic neuropathy) ENT: Allergic Rhinitis, Other (glaucoma) Renal/: Chronic renal insuff Endocrine: Diabetes (2) PAST SURGICAL HISTORY Past Surgical History: Tubal Ligation, Other (uterine ablation, I & D of neck boil) FAMILY HISTORY Family History: Heart Disease SOCIAL HISTORY Smoke: No ALCOHOL: none Drugs: None Lives: with Family CURRENT MEDICATIONS CURRENT MEDICATIONS Current Medications Medications (Trade) Dose Ordered Sig/Jocelyn Route PRN Reason Start Time Stop Time Status Last Admin Dose Admin Hydralazine HCl (Apresoline Inj) 20 mg 1X ONCE IVP 11/29/20 14:45 11/29/20 14:46 DC 11/29/20 14:56 Heparin Sodium (Porcine) (Heparin Sodium) 5,000 unit Q8HRS SQ 11/29/20 22:00 11/30/20 06:34 Insulin Human Lispro (HumaLOG) 0-9 UNITS TIDWMEALS SQ 11/29/20 17:00 11/29/20 17:58 Furosemide (Lasix) 80 mg 1X ONCE IVP 11/29/20 15:30 11/29/20 15:33 DC 11/29/20 15:52 Metoprolol Succinate (Toprol Xl) 100 mg 1X ONCE PO 11/29/20 15:45 11/29/20 15:46 DC 11/29/20 15:54 Insulin Human Lispro (HumaLOG) 10 units TIDWMEALS SQ 11/29/20 17:00 11/29/20 17:59 Hydralazine HCl (Apresoline Inj) 10 mg PRN Q4HRS PRN IVP ELEVATED BP, SEE COMMENTS 11/29/20 16:15 11/29/20 18:42 Aspirin (Kerri Aspirin) 325 mg 1X ONCE PO 11/29/20 16:15 11/29/20 16:18 DC 11/29/20 17:55 Insulin Glargine (Lantus Syringe) 50 unit QHS SQ 11/29/20 21:00 11/29/20 21:00 ALLERGIES ALLERGIES: Coded Allergies: codeine (Verified Allergy, Intermediate, rash, 02/27/13) ROS Review of System 14 point ROS evaluated with pertinent positives noted per HPI PHYSICAL EXAM General: Alert, Oriented X3, Cooperative, No acute distress HEENT: Atraumatic, Mucous membr. moist/pink Lungs: Other (basilar crackles) Heart: Regular rate (SR), Normal S1, Normal S2, No murmurs Abdomen: Soft, No tenderness Extremities: No cyanosis, Other (2+ bilateraal LE pitting edema) Skin: No breakdown, No significant lesion Neuro: Normal speech, Sensation intact Psych/Mental Status: Mood NL MUSCULOSKELETAL: Osteoarthritic changes both hands VITALS/I&O VITALS/I&O: Vital Signs Date Time Temp Pulse Resp B/P (MAP) Pulse Ox O2 Delivery O2 Flow Rate FiO2 11/30/20 07:00 98.7 98 18 160/94 (116) 99 Nasal Cannula 2.0 98.7 I & O 11/29/20 11/29/20 11/30/20 15:00 23:00 07:00 Intake Total 800 ml Output Total 350 ml 1300 ml Balance -350 ml -500 ml LABS Lab: Laboratory Tests Test 11/29/20 13:05 11/29/20 13:50 11/29/20 17:55 11/29/20 17:57 Urine Collection Type Unknown Urine Color Yellow Urine Clarity Clear Urine pH 7.0 (<5.0-8.0) Urine Specific [place] 1.015 (1.000-1.030) Urine Protein >=300 mg/dL (NEG-TRACE) Urine Glucose (UA) >=1000 mg/dL (NEG) Urine Ketones (Stick) Negative mg/dL (NEG) Urine Blood Moderate (NEG) Urine Nitrite Negative (NEG) Urine Bilirubin Negative (NEG) Urine Urobilinogen Dipstick 0.2 mg/dL (0.2 mg/dL) Urine Leukocyte Esterase Negative (NEG) Urine RBC 3-5 /HPF (0-2) Urine WBC Occ /HPF (0-4) Urine Squamous Epithelial Cells Few /LPF Urine Bacteria Moderate /HPF (0-FEW) Urine Random Total Protein 304.7 mg/dL (Not Establ.) White Blood Count 10.3 x10^3/uL (4.0-11.0) Red Blood Count 3.06 x10^6/uL (3.50-5.40) L Hemoglobin 8.9 g/dL (12.0-15.5) L Hematocrit 26.3 % (36.0-47.0) L Mean Corpuscular Volume 86 fL (79-100) Mean Corpuscular Hemoglobin 29 pg (25-35) Mean Corpuscular Hemoglobin Concent 34 g/dL (31-37) Red Cell Distribution Width 13.3 % (11.5-14.5) Platelet Count 392 x10^3/uL (140-400) Neutrophils (%) (Auto) 80 % (31-73) H Lymphocytes (%) (Auto) 10 % (24-48) L Monocytes (%) (Auto) 7 % (0-9) Eosinophils (%) (Auto) 3 % (0-3) Basophils (%) (Auto) 1 % (0-3) Neutrophils # (Auto) 8.2 x10^3/uL (1.8-7.7) H Lymphocytes # (Auto) 1.0 x10^3/uL (1.0-4.8) Monocytes # (Auto) 0.8 x10^3/uL (0.0-1.1) Eosinophils # (Auto) 0.3 x10^3/uL (0.0-0.7) Basophils # (Auto) 0.0 x10^3/uL (0.0-0.2) Sodium Level 134 mmol/L (136-145) L Potassium Level 4.9 mmol/L (3.5-5.1) Chloride Level 101 mmol/L (98-107) Carbon Dioxide Level 21 mmol/L (21-32) Anion Gap 12 (6-14) Blood Urea Nitrogen 43 mg/dL (7-20) H Creatinine 2.0 mg/dL (0.6-1.0) H Estimated GFR (Cockcroft-Gault) 31.4 BUN/Creatinine Ratio 22 (6-20) H Glucose Level 445 mg/dL (70-99) H Lactic Acid Level 1.9 mmol/L (0.4-2.0) Calcium Level 8.6 mg/dL (8.5-10.1) Magnesium Level 1.8 mg/dL (1.8-2.4) Iron Level 34 ug/dL (50-170) L Total Iron Binding Capacity 267 ug/dL (250-450) Iron Saturation 13 % (15-34) L Total Bilirubin 0.8 mg/dL (0.2-1.0) Aspartate Amino Transferase (AST) 19 U/L (15-37) Alanine Aminotransferase (ALT) 23 U/L (14-59) Alkaline Phosphatase 92 U/L (46-116) Troponin I Quantitative 0.109 ng/mL (0.000-0.055) 0.146 ng/mL (0.000-0.055) XS-Slk-T-Type Natriuretic Peptide 3473 pg/mL (0-124) H Total Protein 7.1 g/dL (6.4-8.2) Albumin 2.5 g/dL (3.4-5.0) L Albumin/Globulin Ratio 0.5 (1.0-1.7) L Vitamin B12 Level 650 pg/mL (247-911) Procalcitonin < 0.10 ng/mL (0.00-0.10) Thyroid Stimulating Hormone (TSH) 1.067 uIU/mL (0.358-3.74) Influenza Type A Antigen Negative (NEGATIVE) Influenza Type B Antigen Negative (NEGATIVE) SARS-CoV-2 Antigen (Rapid) Negative (NEGATIVE) Glucose (Fingerstick) 446 mg/dL (70-99) H Test 11/29/20 20:52 11/30/20 03:55 11/30/20 08:28 Glucose (Fingerstick) 265 mg/dL (70-99) H 180 mg/dL (70-99) H Sodium Level 138 mmol/L (136-145) Potassium Level 4.5 mmol/L (3.5-5.1) Chloride Level 104 mmol/L (98-107) Carbon Dioxide Level 23 mmol/L (21-32) Anion Gap 11 (6-14) Blood Urea Nitrogen 46 mg/dL (7-20) H Creatinine 2.0 mg/dL (0.6-1.0) H Estimated GFR (Cockcroft-Gault) 31.4 Glucose Level 226 mg/dL (70-99) H Calcium Level 8.6 mg/dL (8.5-10.1) Troponin I Quantitative 0.244 ng/mL (0.000-0.055) Laboratory Tests 11/29/20 13:50 Laboratory Tests 11/29/20 13:50 11/30/20 03:55 ASSESSMENT/PLAN ASSESSMENT/PLAN 1. Acute CHF 2. NSTEMI: peaked troponin 0.2 suspect demand mediated 3. HTN urgency 4. Morbid obesity 5. DM2: uncontrolled 6. Hx of autonomic neuropathy 7. HLP 8. Suspect CKD3 9. Normocytic anemia likely from chronic disease 10. PUI: negative Recommendations TTE. A1C and FLP repeat EKG Secondary prevention measures Ischemic w/u as outpt Stop meloxicam chlorthalidone, hold metformin stop losartan for now Continue home amlodipine and metoprolol. Hydralazine IV PRN. Also on home clonidine Will need FANTA w/u Lasix therapy. ASA LAURENT GOLDEN MD 11/30/202102: CARDIAC CONSULT ASSESSMENT/PLAN ASSESSMENT/PLAN Patient seen and examined. Agree with REGIONAL BUSINESS DEVELOPMENT MANAGER's assessment and plan. Acute on chronic diast HF better compensated 2D echo showed normal LV systolic function NSTEMI probably demand ischemia Plan ischemic evaluation as outpatient Resume home meds and titrate for better BP control Thank you for your consultation BERE WOODSON APRN Nov 30, 2020 09:25 LAURENT GOLDEN MD Nov 30, 2020 21:03
--- NOTE | 2020-11-30 10:00 | EKG ---
[facility] [address] [place] [address] Test Date: 2020-11-30 Test Time: 09:51:56 Pat Name: NATE CORDERO Department: Room: [place] Gender: F Passenger Booking Clerk: : 1965 Requested By: BERE WOODSON Order Number: [id number] Reading MD: Thompson Rodrigez MD Measurements Intervals [place] Rate: 93 P: 42 TN: 164 QRS: 31 QRSD: 72 T: 142 QT: 370 QTc: 463 Interpretive Statements SINUS RHYTHM NON-SPECIFIC ST/T CHANGES Electronically Signed On 12-05-2020 11:43:50 CDT by Thompson Rodrigez MD
[2020-11-30 10:24] LABS: CHOLESTEROL/HDL RATIO 2.9
[2020-11-30] MEDS: FUROSEMIDE 40 MG/4 ML VIAL. IVP SCH (10:25)
[2020-11-30] MEDS: ASPIRIN ENTERIC COATED 81 MG TABLET.DR. PO SCH (10:25)
[2020-11-30] MEDS: METOPROLOL SUCC 24HR ER 100 MG TAB.ER.24H. PO SCH (10:26)
[2020-11-30] MEDS: cloNIDine HCL 0.2 MG TABLET PO SCH ×2 (10:26→23:40)
[2020-11-30] MEDS: INSULIN LISPRO 300 UNITS/3 ML VIAL. SQ SCH ×6 (10:32→18:10)
[2020-11-30 11:00] VITALS: BP 159/81
--- NOTE | 2020-11-30 11:13 | PDOC2 ---
CONSULT Date of Consult Date of Consult DATE: 11/30/20 TIME: 11:06 Reason for Consult Reason for Consult: RENAL FAILURE Referring Physician Referring Physician: EDDIE Identification/Chief Complaint Chief Complaint SOB Source Source: Chart review, Patient History of Present Illness Reason for Visit: THIS IS A 55 YR ADMITTED WITH SOB. DX WITH CHF. SHE IS UNDERGOING CARDIOLOGY EVALUATION AT THIS TIME. ON IV LASIX NOW. HAS BEEN ON MOBIC, AN ARB AND A THIAZIDE AT HOME. RENAL CONSULT DUE TO A CR OF 2.0. SHE HAD A CR OF 2.6 LAST MONTH. SHE IS SCHEDULED FOR AN OP RENAL CONSULT THIS SATURDAY. HAS NOT SEEN A REGULATORY ADMINISTRATOR IN THE PAST. SHE HAS A LONG HX OF DM II AND HX OF DIABETIC RETINO MARIAH REQUIRING PHOTOCOAGULATION. HEMODYNAMICALLY STABLE. BG HAS NOT BEEN WELL CONTROLLED. UA NOTABLE FOR SIGNIFICANT GLUCOSURIA AND PROTEINURIA Past Medical History Cardiovascular: HTN, Hyperlipidemia CENTRAL NERVOUS SYSTEM: Periperal neuropathy, Other (autonomic neuropathy) ENT: Allergic Rhinitis, Other (glaucoma) Renal/: Chronic renal insuff Endocrine: Diabetes (2) Past Surgical History Past Surgical History: Tubal Ligation, Other (uterine ablation, I & D of neck boil) Family History Family History: Heart Disease Social History No ALCOHOL: none Drugs: None Lives: with Family Current Problem List Problem List Problems Medical Problems: (1) CHF exacerbation Status: Acute (2) Hypertensive urgency Status: Acute Current Medications Current Medications Current Medications Hydralazine HCl (Apresoline Inj) 20 mg 1X ONCE IVP Last administered on 11/29/20at 14:56; Start 11/29/20 at 14:45; Stop 11/29/20 at 14:46; Status DC Ondansetron HCl (Zofran) 4 mg PRN Q4HRS PRN IVP NAUSEA/VOMITING; Start 11/29/20 at 15:30 Acetaminophen (Tylenol) 650 mg PRN Q6HRS PRN PO MILD PAIN / TEMP > 100.3'F Last administered on 11/30/20at 10:39; Start 11/29/20 at 15:30 Heparin Sodium (Porcine) (Heparin Sodium) 5,000 unit Q8HRS SQ Last administered on 11/30/20at 06:34; Start 11/29/20 at 22:00 Insulin Human Lispro (HumaLOG) 0-9 UNITS TIDWMEALS SQ Last administered on 11/30/20at 10:32; Start 11/29/20 at 17:00 Dextrose (Dextrose 50%-Water Syringe) 12.5 gm PRN Q15MIN PRN IV SEE COMMENTS; Start 11/29/20 at 15:30 Furosemide (Lasix) 80 mg 1X ONCE IVP Last administered on 11/29/20at 15:52; Start 11/29/20 at 15:30; Stop 11/29/20 at 15:33; Status DC Metoprolol Succinate (Toprol Xl) 100 mg 1X ONCE PO Last administered on 11/29/20at 15:54; Start 11/29/20 at 15:45; Stop 11/29/20 at 15:46; Status DC Insulin Human Lispro (HumaLOG) 10 units TIDWMEALS SQ Last administered on 11/30/20at 10:32; Start 11/29/20 at 17:00 Hydralazine HCl (Apresoline Inj) 10 mg PRN Q4HRS PRN IVP ELEVATED BP, SEE COMMENTS Last administered on 11/29/20at 18:42; Start 11/29/20 at 16:15 Zolpidem Tartrate (Ambien) 5 mg PRN QHS PRN PO INSOMNIA; Start 11/29/20 at 16:15 Nitroglycerin (Nitrostat) 0.4 mg PRN Q5MIN PRN SL CHEST PAIN; Start 11/29/20 at 16:15 Aspirin (Kerri Aspirin) 325 mg 1X ONCE PO Last administered on 11/29/20at 17:55; Start 11/29/20 at 16:15; Stop 11/29/20 at 16:18; Status DC Insulin Glargine (Lantus Syringe) 50 unit QHS SQ Last administered on 11/29/20at 21:00; Start 11/29/20 at 21:00 Amlodipine Besylate (Norvasc) 10 mg DAILY PO Last administered on 11/30/20at 10:27; Start 11/30/20 at 10:30 Clonidine HCl (Catapres) 0.2 mg BID PO Last administered on 11/30/20at 10:26; Start 11/30/20 at 10:30 Metoprolol Succinate (Toprol Xl) 100 mg DAILY PO Last administered on 11/30/20at 10:26; Start 11/30/20 at 10:30 Atorvastatin Calcium (Lipitor) 80 mg QHS PO ; Start 11/30/20 at 21:00 Aspirin (Ecotrin) 81 mg DAILYWBKFT PO Last administered on 11/30/20at 10:25; Start 11/30/20 at 10:30 Furosemide (Lasix) 40 mg DAILY IVP Last administered on 11/30/20at 10:25; Start 11/30/20 at 10:30 Active Scripts Active Hydrocodone-Acetamin 5-325 mg (Hydrocodone/Acetaminophen) 1 Each Tablet 1 Each PO Q6HRS 3 Days Reported Levemir (Insulin Detemir) 100 Unit/1 Ml Vial 1 Unit SQ BIDBFRMEAL Novolog (Insulin Aspart) 100 Unit/1 Ml Vial 100 Unit SQ BIDBFRMEAL Cephalexin 500 Mg Tablet 500 Mg PO TID Metformin Hcl 1,000 Mg Tablet 1,000 Mg PO BIDWMEALS Meloxicam 15 Mg Tablet 15 Mg PO DAILY Metoprolol Succinate ( Xl ) (Metoprolol Succinate) 100 Mg Tab.er.24h 100 Mg PO DAILY Clonidine Hcl 0.2 Mg Tablet 0.2 Mg PO BID Chlorthalidone (Chlorthalidone) 25 Mg Tablet 10 Mg PO TID Cyclobenzaprine Hcl 10 Mg Tablet 10 Mg PO TID Gabapentin 600 Mg Tablet 600 Mg PO TID [place] 3 Fish Oil Softgel ([place]-3 Fatty Acids/Fish Oil) 1 Each Capsule.dr 1 Each PO DAILY Jardiance (Empagliflozin) 25 Mg Tablet 25 Mg PO DAILY Montelukast Sodium Tablet (Montelukast Sodium) 10 Mg Tablet 10 Mg PO HS Atorvastatin Calcium 80 Mg Tablet 80 Mg PO DAILY Amlodipine Besylate 10 Mg Tablet 10 Mg PO DAILY Allergies Allergies: Coded Allergies: codeine (Verified Allergy, Intermediate, rash, 02/27/13) ROS General: YES: Fatigue, Malaise PSYCHOLOGICAL ROS: YES: Anxiety, Depression Eyes: Yes Decreased vision HEENT: YES: Kyle ALLERGY AND IMMUNOLOGY: YES: Other (ALLERGIC RHINITIS) Respiratory: YES: Cough, Shortness of breath Cardiovascular: yes Orthopnea Gastrointestinal: Yes Constipation Genitourinary: YES Frequency Musculoskeletal: Yes Joint Stiffness, Yes Muscular Weakness Neurological: Yes Weakness Skin: Yes Dry Skin Physical Exam General: Alert, Oriented X3, Cooperative, No acute distress HEENT: Atraumatic, PERRLA Lungs: Clear to auscultation Heart: Regular rate Abdomen: Normal bowel sounds, Soft, No tenderness Extremities: No clubbing Skin: No breakdown Neuro: Normal speech Psych/Mental Status: Mental status NL, Mood NL MUSCULOSKELETAL: No joint tenderness, No deformity, No swelling Vitals VITALS Vital Signs Date Time Temp Pulse Resp B/P (MAP) Pulse Ox O2 Delivery O2 Flow Rate FiO2 11/30/20 10:27 98 160/94 11/30/20 07:00 98.7 18 99 Nasal Cannula 2.0 98.7 Labs Labs Laboratory Tests Test 11/29/20 13:05 11/29/20 13:50 11/29/20 17:55 11/29/20 17:57 Urine Collection Type Unknown Urine Color Yellow Urine Clarity Clear Urine pH 7.0 (<5.0-8.0) Urine Specific Michie 1.015 (1.000-1.030) Urine Protein >=300 mg/dL (NEG-TRACE) Urine Glucose (UA) >=1000 mg/dL (NEG) Urine Ketones (Stick) Negative mg/dL (NEG) Urine Blood Moderate (NEG) Urine Nitrite Negative (NEG) Urine Bilirubin Negative (NEG) Urine Urobilinogen Dipstick 0.2 mg/dL (0.2 mg/dL) Urine Leukocyte Esterase Negative (NEG) Urine RBC 3-5 /HPF (0-2) Urine WBC Occ /HPF (0-4) Urine Squamous Epithelial Cells Few /LPF Urine Bacteria Moderate /HPF (0-FEW) Urine Random Total Protein 304.7 mg/dL (Not Establ.) White Blood Count 10.3 x10^3/uL (4.0-11.0) Red Blood Count 3.06 x10^6/uL (3.50-5.40) Hemoglobin 8.9 g/dL (12.0-15.5) Hematocrit 26.3 % (36.0-47.0) Mean Corpuscular Volume 86 fL (79-100) Mean Corpuscular Hemoglobin 29 pg (25-35) Mean Corpuscular Hemoglobin Concent 34 g/dL (31-37) Red Cell Distribution Width 13.3 % (11.5-14.5) Platelet Count 392 x10^3/uL (140-400) Neutrophils (%) (Auto) 80 % (31-73) Lymphocytes (%) (Auto) 10 % (24-48) Monocytes (%) (Auto) 7 % (0-9) Eosinophils (%) (Auto) 3 % (0-3) Basophils (%) (Auto) 1 % (0-3) Neutrophils # (Auto) 8.2 x10^3/uL (1.8-7.7) Lymphocytes # (Auto) 1.0 x10^3/uL (1.0-4.8) Monocytes # (Auto) 0.8 x10^3/uL (0.0-1.1) Eosinophils # (Auto) 0.3 x10^3/uL (0.0-0.7) Basophils # (Auto) 0.0 x10^3/uL (0.0-0.2) Sodium Level 134 mmol/L (136-145) Potassium Level 4.9 mmol/L (3.5-5.1) Chloride Level 101 mmol/L (98-107) Carbon Dioxide Level 21 mmol/L (21-32) Anion Gap 12 (6-14) Blood Urea Nitrogen 43 mg/dL (7-20) Creatinine 2.0 mg/dL (0.6-1.0) Estimated GFR (Cockcroft-Gault) 31.4 BUN/Creatinine Ratio 22 (6-20) Glucose Level 445 mg/dL (70-99) Lactic Acid Level 1.9 mmol/L (0.4-2.0) Calcium Level 8.6 mg/dL (8.5-10.1) Magnesium Level 1.8 mg/dL (1.8-2.4) Iron Level 34 ug/dL (50-170) Total Iron Binding Capacity 267 ug/dL (250-450) Iron Saturation 13 % (15-34) Total Bilirubin 0.8 mg/dL (0.2-1.0) Aspartate Amino Transf (AST/SGOT) 19 U/L (15-37) Alanine Aminotransferase (ALT/SGPT) 23 U/L (14-59) Alkaline Phosphatase 92 U/L (46-116) Troponin I Quantitative 0.109 ng/mL (0.000-0.055) 0.146 ng/mL (0.000-0.055) JU-Btd-A-Type Natriuretic Peptide 3473 pg/mL (0-124) Total Protein 7.1 g/dL (6.4-8.2) Albumin 2.5 g/dL (3.4-5.0) Albumin/Globulin Ratio 0.5 (1.0-1.7) Vitamin B12 Level 650 pg/mL (247-911) Procalcitonin < 0.10 ng/mL (0.00-0.10) Thyroid Stimulating Hormone (TSH) 1.067 uIU/mL (0.358-3.74) Influenza Type A Antigen Negative (NEGATIVE) Influenza Type B Antigen Negative (NEGATIVE) SARS-CoV-2 Antigen (Rapid) Negative (NEGATIVE) Glucose (Fingerstick) 446 mg/dL (70-99) Test 11/29/20 20:52 11/30/20 03:55 11/30/20 08:28 Glucose (Fingerstick) 265 mg/dL (70-99) 180 mg/dL (70-99) Sodium Level 138 mmol/L (136-145) Potassium Level 4.5 mmol/L (3.5-5.1) Chloride Level 104 mmol/L (98-107) Carbon Dioxide Level 23 mmol/L (21-32) Anion Gap 11 (6-14) Blood Urea Nitrogen 46 mg/dL (7-20) Creatinine 2.0 mg/dL (0.6-1.0) Estimated GFR (Cockcroft-Gault) 31.4 Glucose Level 226 mg/dL (70-99) Calcium Level 8.6 mg/dL (8.5-10.1) Troponin I Quantitative 0.244 ng/mL (0.000-0.055) Triglycerides Level 88 mg/dL (0-150) Cholesterol Level 173 mg/dL (0-200) LDL Cholesterol, Calculated 96 mg/dL (0-100) VLDL Cholesterol, Calculated 18 mg/dL (0-40) Non-HDL Cholesterol Calculated 114 mg/dL (0-129) HDL Cholesterol 59 mg/dL (40-60) Cholesterol/HDL Ratio 2.9 Laboratory Tests Test 11/29/20 13:05 11/29/20 13:50 11/29/20 17:55 11/29/20 17:57 Urine Collection Type Unknown Urine Color Yellow Urine Clarity Clear Urine pH 7.0 (<5.0-8.0) Urine Specific Michie 1.015 (1.000-1.030) Urine Protein >=300 mg/dL (NEG-TRACE) Urine Glucose (UA) >=1000 mg/dL (NEG) Urine Ketones (Stick) Negative mg/dL (NEG) Urine Blood Moderate (NEG) Urine Nitrite Negative (NEG) Urine Bilirubin Negative (NEG) Urine Urobilinogen Dipstick 0.2 mg/dL (0.2 mg/dL) Urine Leukocyte Esterase Negative (NEG) Urine RBC 3-5 /HPF (0-2) Urine WBC Occ /HPF (0-4) Urine Squamous Epithelial Cells Few /LPF Urine Bacteria Moderate /HPF (0-FEW) Urine Random Total Protein 304.7 mg/dL (Not Establ.) White Blood Count 10.3 x10^3/uL (4.0-11.0) Red Blood Count 3.06 x10^6/uL (3.50-5.40) Hemoglobin 8.9 g/dL (12.0-15.5) Hematocrit 26.3 % (36.0-47.0) Mean Corpuscular Volume 86 fL (79-100) Mean Corpuscular Hemoglobin 29 pg (25-35) Mean Corpuscular Hemoglobin Concent 34 g/dL (31-37) Red Cell Distribution Width 13.3 % (11.5-14.5) Platelet Count 392 x10^3/uL (140-400) Neutrophils (%) (Auto) 80 % (31-73) Lymphocytes (%) (Auto) 10 % (24-48) Monocytes (%) (Auto) 7 % (0-9) Eosinophils (%) (Auto) 3 % (0-3) Basophils (%) (Auto) 1 % (0-3) Neutrophils # (Auto) 8.2 x10^3/uL (1.8-7.7) Lymphocytes # (Auto) 1.0 x10^3/uL (1.0-4.8) Monocytes # (Auto) 0.8 x10^3/uL (0.0-1.1) Eosinophils # (Auto) 0.3 x10^3/uL (0.0-0.7) Basophils # (Auto) 0.0 x10^3/uL (0.0-0.2) Sodium Level 134 mmol/L (136-145) Potassium Level 4.9 mmol/L (3.5-5.1) Chloride Level 101 mmol/L (98-107) Carbon Dioxide Level 21 mmol/L (21-32) Anion Gap 12 (6-14) Blood Urea Nitrogen 43 mg/dL (7-20) Creatinine 2.0 mg/dL (0.6-1.0) Estimated GFR (Cockcroft-Gault) 31.4 BUN/Creatinine Ratio 22 (6-20) Glucose Level 445 mg/dL (70-99) Lactic Acid Level 1.9 mmol/L (0.4-2.0) Calcium Level 8.6 mg/dL (8.5-10.1) Magnesium Level 1.8 mg/dL (1.8-2.4) Iron Level 34 ug/dL (50-170) Total Iron Binding Capacity 267 ug/dL (250-450) Iron Saturation 13 % (15-34) Total Bilirubin 0.8 mg/dL (0.2-1.0) Aspartate Amino Transf (AST/SGOT) 19 U/L (15-37) Alanine Aminotransferase (ALT/SGPT) 23 U/L (14-59) Alkaline Phosphatase 92 U/L (46-116) Troponin I Quantitative 0.109 ng/mL (0.000-0.055) 0.146 ng/mL (0.000-0.055) GE-Zjd-K-Type Natriuretic Peptide 3473 pg/mL (0-124) Total Protein 7.1 g/dL (6.4-8.2) Albumin 2.5 g/dL (3.4-5.0) Albumin/Globulin Ratio 0.5 (1.0-1.7) Vitamin B12 Level 650 pg/mL (247-911) Procalcitonin < 0.10 ng/mL (0.00-0.10) Thyroid Stimulating Hormone (TSH) 1.067 uIU/mL (0.358-3.74) Influenza Type A Antigen Negative (NEGATIVE) Influenza Type B Antigen Negative (NEGATIVE) SARS-CoV-2 Antigen (Rapid) Negative (NEGATIVE) Glucose (Fingerstick) 446 mg/dL (70-99) Test 11/29/20 20:52 11/30/20 03:55 11/30/20 08:28 Glucose (Fingerstick) 265 mg/dL (70-99) 180 mg/dL (70-99) Sodium Level 138 mmol/L (136-145) Potassium Level 4.5 mmol/L (3.5-5.1) Chloride Level 104 mmol/L (98-107) Carbon Dioxide Level 23 mmol/L (21-32) Anion Gap 11 (6-14) Blood Urea Nitrogen 46 mg/dL (7-20) Creatinine 2.0 mg/dL (0.6-1.0) Estimated GFR (Cockcroft-Gault) 31.4 Glucose Level 226 mg/dL (70-99) Calcium Level 8.6 mg/dL (8.5-10.1) Troponin I Quantitative 0.244 ng/mL (0.000-0.055) Triglycerides Level 88 mg/dL (0-150) Cholesterol Level 173 mg/dL (0-200) LDL Cholesterol, Calculated 96 mg/dL (0-100) VLDL Cholesterol, Calculated 18 mg/dL (0-40) Non-HDL Cholesterol Calculated 114 mg/dL (0-129) HDL Cholesterol 59 mg/dL (40-60) Cholesterol/HDL Ratio 2.9 Assessment/Plan Assessment/Plan IMP CKD STAGE 3B ACUTE RESP FAILURE CHF-ACUTE DIASTOLIC DM II-POORLY CONTROLLED DIABETIC RETINOPATHY HTN ANEMIA PROTEINURIA PLAN AGREE WITH STOPPING MOBIC OK TO CONT METFORMIN AND ARB CARDIOLOGY EVALUATION SHE APPEARS TO HAVE CKD STAGE 3B DUE TO END ORGAN DAMAGE FROM DM II WILL FOLLOW MAYTE MOSHER MD Nov 30, 2020 11:13
[2020-11-30 14:43] VITALS: BP 171/85
--- NOTE | 2020-11-30 15:35 | NUR ---
SS following for discharge planning. SS reviewed pt chart and discussed with pt RN. Pt is from home and is currently requiring oxygen at two liters nasal canula. COVID19 negative. Pt on IV Lasix. Cardiology and Nephrology consulted. SS will continue to follow for discharge planning.
--- NOTE | 2020-11-30 16:08 | PDOC ---
[employer] PROGRESS NOTE Date of Service DOS: DATE: 11/30/20 TIME: 16:00 Chief Complaint Chief Complaint Acute respiratory failure with hypoxia - likely due to pulmonary edema due to acute diastolic CHF. Bronchitis on differential as well, though she does not use home inhalers, no smoke exposure no sick contacts. Will r/o COVID 19 breakthrough as well. Diurese with furosemide. Shortness of breath - Likely related to above from pulmonary edema and acute diastolic CHF from hypertension. Less likely infectious given insidious onset and sudden worsening. Will r/o DVT with venous dopplers and consider VQ scan, though tachcardia likely due to not taking toprol today Hypertensive emergency - with elevated troponin and JADON, improved with IV hydralazine, will cont prn JADON - recently noted, but has not improved. Likely vasomotor nephropathy from cardiorenal syndrome. Will attempt diuresis given clinical CHF symptoms with cardiology and nephrology consultation. She may have CKD from diabetic and hypertensive nephropathy underlying as well. Hyponatremia - likely hypervolemic. Will diurese. Consult nephrology for JADON vs CKD Elevated troponin - likely demand ischemia from BP and hypoxia, will trend. Maintain telemetry. Cont home ASA and BB. Severe protein calorie malnutrition - possibly low albumin state due to nephropa thy. Nephrology consulted Anemia - likely of chronic disease, will check iron levels Type 2 diabetes with hyperglycemia - will hold metformin for JADON. Basal bolus plus insulin while inpatient HLD - cont statin Glaucoma - continue nightly GTT Allergic rhinitis - cont home singulair History of Present Illness History of Present Illness Ms Paul is a 55 year old female w/ PMHx DM2, HTN, HLD, glaucoma who present to ER c/o progressive difficulty breathing with exertion and now at rest. She has had a white frothy cough for the last day. Patient denies any fever. She has had progressive weight gain, difficulty controlling her blood sugar and swelling of her abdomen and legs for the past month. No recent travel or sick contacts, no prolonged immobilization. Patient denies abdominal pain, no nausea vomiting. She does notice abdominal swelling associated with her leg swelling or shortness of breath. Difficulty getting a deep breath. Had [employer] Covid vaccine in May 2020. She does note based on recent labs she was told she has kidney injury and had a referral to outpatient nephrology coming up 12/02/2020 Initial vital signs temp 98.6 F pulse 123 beats minute respirations 32/min blood pressure 212/110 O2 saturation less than 88% on room air improved to 92% with 2 L nasal cannula oxygen. Given IV hydralazine with improvement of systolic blood pressure 184/89. Of note patient says she did not take any of her home medications today and does take metoprolol succinate 100 mg, amlodipine 10 mg, atorvastatin 80 mg, gabapentin 300 mg 3 times daily, chlorthalidone 50 mg daily, losartan 100 mg daily, Metformin 1000 mg twice daily, lispro 40 U every morning and Levemir 70 U nightly Travatan and latanoprost nightly and a baby aspirin daily. 11/30/2020: Patient currently breathing on room air, states she feels better. COVID-19 negative. She reports improvement in her leg swelling. Ultrasound showed no evidence of DVT. Will follow nephrology recommendations, stop Mobic and okay to continue Metformin and ARB as outpatient. Echocardiogram pending. Per cardiology, will continue diuresis and continue secondary prevention measures; ischemic evaluation as outpatient. Anticipate discharge likely tomorrow. Vitals/I&O Vitals/I&O: Vital Signs Date Time Temp Pulse Resp B/P (MAP) Pulse Ox O2 Delivery O2 Flow Rate FiO2 11/30/20 14:43 98.9 101 20 171/85 (113) 99 Nasal Cannula 2.0 98.9 I & O 11/29/20 11/29/20 11/30/20 15:00 23:00 07:00 Intake Total 800 ml Output Total 350 ml 1300 ml Balance -350 ml -500 ml Physical Exam General: Alert, Oriented X3, Cooperative, No acute distress Heart: Regular rate (SR), Normal S1, Normal S2, No murmurs Lungs: Crackles Abdomen: Soft, No tenderness Extremities: No cyanosis, Other (2+ bilateraal LE pitting edema) Skin: No breakdown, No significant lesion Labs Labs: Laboratory Tests Test 11/29/20 17:55 11/29/20 17:57 11/29/20 20:52 11/30/20 03:55 Troponin I Quantitative 0.146 ng/mL (0.000-0.055) 0.244 ng/mL (0.000-0.055) Glucose (Fingerstick) 446 mg/dL (70-99) 265 mg/dL (70-99) Sodium Level 138 mmol/L (136-145) Potassium Level 4.5 mmol/L (3.5-5.1) Chloride Level 104 mmol/L (98-107) Carbon Dioxide Level 23 mmol/L (21-32) Anion Gap 11 (6-14) Blood Urea Nitrogen 46 mg/dL (7-20) Creatinine 2.0 mg/dL (0.6-1.0) Estimated GFR (Cockcroft-Gault) 31.4 Glucose Level 226 mg/dL (70-99) Calcium Level 8.6 mg/dL (8.5-10.1) Triglycerides Level 88 mg/dL (0-150) Cholesterol Level 173 mg/dL (0-200) LDL Cholesterol, Calculated 96 mg/dL (0-100) VLDL Cholesterol, Calculated 18 mg/dL (0-40) Non-HDL Cholesterol Calculated 114 mg/dL (0-129) HDL Cholesterol 59 mg/dL (40-60) Cholesterol/HDL Ratio 2.9 Test 11/30/20 08:28 11/30/20 12:05 Glucose (Fingerstick) 180 mg/dL (70-99) 211 mg/dL (70-99) Assessment and Plan Assessmemt and Plan Problems Medical Problems: (1) CHF exacerbation Status: Acute (2) Hypertensive urgency Status: Acute Comment Review of Relevant I have reviewed the following items ze (where applicable) has been applied. Medications: Current Medications Medications (Trade) Dose Ordered Sig/Jocelyn Route PRN Reason Start Time Stop Time Status Last Admin Dose Admin Heparin Sodium (Porcine) (Heparin Sodium) 5,000 unit Q8HRS SQ 11/29/20 22:00 11/30/20 15:36 Insulin Human Lispro (HumaLOG) 0-9 UNITS TIDWMEALS SQ 11/29/20 17:00 11/30/20 12:43 Insulin Human Lispro (HumaLOG) 10 units TIDWMEALS SQ 11/29/20 17:00 11/30/20 12:43 Hydralazine HCl (Apresoline Inj) 10 mg PRN Q4HRS PRN IVP ELEVATED BP, SEE COMMENTS 11/29/20 16:15 11/29/20 18:42 Aspirin (Kerri Aspirin) 325 mg 1X ONCE PO 11/29/20 16:15 11/29/20 16:18 DC 11/29/20 17:55 Insulin Glargine (Lantus Syringe) 50 unit QHS SQ 11/29/20 21:00 11/29/20 21:00 Amlodipine Besylate (Norvasc) 10 mg DAILY PO 11/30/20 10:30 11/30/20 10:27 Clonidine HCl (Catapres) 0.2 mg BID PO 11/30/20 10:30 11/30/20 10:26 Metoprolol Succinate (Toprol Xl) 100 mg DAILY PO 11/30/20 10:30 11/30/20 10:26 Aspirin (Ecotrin) 81 mg DAILYWBKFT PO 11/30/20 10:30 11/30/20 10:25 Furosemide (Lasix) 40 mg DAILY IVP 11/30/20 10:30 11/30/20 10:25 Justifications for Admission Other Justification ED FIGUEROA MD Nov 30, 2020 16:08
--- NOTE | 2020-11-30 16:51 | CARD ---
MR#: [id number] Date of Study: 11/30/2020 Ordering Physician: ISABELLA MORGAN, Referring Physician: ISABELLA MORGAN, Tech: Candy Ventura, [facility] APPROVED REPORT EXAM: Two-dimensional and M-mode echocardiogram with Doppler and color Doppler. Other Information Quality : AverageHR: 99bpm INDICATION Congestive Heart Failure RISK FACTORS Hypertension Hyperlipidemia Diabetes 2D DIMENSIONS RVDd3.5 (2.9-3.5cm)Left Atrium(2D)4.0 (1.6-4.0cm) IVSd1.1 (0.7-1.1cm)Aortic Root(2D)3.1 (2.0-3.7cm) LVDd5.3 (3.9-5.9cm)LVOT Diameter2.0 (1.8-2.4cm) PWd1.1 (0.7-1.1cm)LVDs4.4 (2.5-4.0cm) FS (%) 17.9 %SV49.8 ml Aortic Valve AoV Peak Alexander.198.5cm/sAoV VTI33.4cm AO Peak GR.15.8mmHgLVOT Peak Alexander.132.5cm/s LVOT VTI 25.09cmAO Mean GR.8mmHg SHAHZAD (VMAX)1.56xg8UWN (VTI)2.28cm2 Mitral Valve MV E Rhaptjdr081.2cm/sMV DECEL [id number] MV A Cufgswuk867.8cm/sMV E Mean Gr.3mmHg MV RFY34mwS/A Ratio0.9 MVA (PHT)4.24cm2 TDI E/Lateral E'12.9E/Medial E'15.0 Pulmonary Valve PV Peak Tcatkqfw307.9cm/sPV Peak Grad.4mmHg Tricuspid Valve TR P. Borgioqe688ng/sRAP [id number] TR Peak Gr.45ztSjXVZC37hwWh Pulmonary Vein S1 Nbawzulf61.2cm/sD2 Wpvqgekz61.9cm/s PVa [id number] LEFT VENTRICLE The left ventricle is normal size. There is mild concentric left ventricular hypertrophy. The left ve ntricular systolic function is normal. The Ejection Fraction is 55-60%. There is normal LV segmental wall motion. The left ventricular diastolic function and filling is normal for age. RIGHT VENTRICLE The right ventricle is normal size. There is normal right ventricular wall thickness. The right ventr icular systolic function is normal. ATRIA The left atrium size is normal. The right atrium size is normal. The interatrial septum is intact wit h no evidence for an atrial septal defect or patent foramen ovale as noted on 2-D or Doppler imaging. AORTIC VALVE The aortic valve is normal in structure and function. Doppler and Color Flow revealed trace aortic re gurgitation. There is no significant aortic valvular stenosis. Calculated aortic valve area is 1.94 c m2 with maximum pressure gradient of 19 mmHg and mean pressure gradient of 9 mmHg. MITRAL VALVE The mitral valve is normal in structure and function. There is no evidence of mitral valve prolapse. There is no mitral valve stenosis. Doppler and Color-flow revealed trace mitral regurgitation. TRICUSPID VALVE The tricuspid valve is normal in structure and function. Doppler and Color Flow revealed trace tricus pid regurgitation with an estimated PAP of 37 mmHg. There is no tricuspid valve stenosis. PULMONIC VALVE The pulmonic valve is not well visualized. Doppler and Color Flow revealed trace pulmonic valvular re gurgitation. GREAT VESSELS The aortic root is normal in size. The ascending aorta is normal in size. The IVC is normal in size a nd collapses >50% with inspiration. PERICARDIAL EFFUSION There is no evidence of significant pericardial effusion. Critical Notification Critical Value: No <Conclusion> The left ventricular systolic function is normal. The Ejection Fraction is 55-60%. There is normal LV segmental wall motion. The left ventricular diastolic function and filling is normal for age. Trace mitral regurgitation. Trace tricuspid regurgitation with an estimated PAP of 37 mmHg. There is no evidence of significant pericardial effusion. Signed by : Tima Dyson, Electronically Approved : 11/30/2020 16:50:44
[2020-11-30 19:00] VITALS: BP 202/93
--- NOTE | 2020-11-30 20:00 | NUR ---
PT HAS DIME SIZE CALOUS (ON RIGHT FOOT) LOOKING WOUND, SHE SAYS PODIETRY HAS BEEN DEBRIDING IT FOR THREE MONTHS. CONSULTED WOUND CLINIC. NIESHA
[2020-11-30] MEDS ORDERED: ATORVASTATIN CALCIUM 40 MG TABLET. PO SCH (21:00)
[2020-11-30 23:00] VITALS: BP 202/99
[2020-11-30] MEDS: hydrALAZINE 20 MG/ML VIAL. IVP PRN (23:40)
[2020-11-30] MEDS: INSULIN GLARGINE SYRINGE. SQ SCH (23:47)
[2020-12-01 03:00] VITALS: BP 126/58
[2020-12-01 03:10] LABS: HEMOGLOBIN A1C >15.5 % (4.8-5.6)
[2020-12-01 05:16] LABS: CALCIUM 8.6 mg/dL (8.5-10.1); CREATININE 2.1 mg/dL (0.6-1.0); GFR 29.7; POTASSIUM 4.6 mmol/L (3.5-5.1)
[2020-12-01] MEDS: HEPARIN for SUB-Q USE 5,000 UNIT/ML VIAL. SQ SCH (06:04)
[2020-12-01 07:00] VITALS: BP 150/81
[2020-12-01] MEDS: ASPIRIN ENTERIC COATED 81 MG TABLET.DR. PO SCH (09:55)
[2020-12-01] MEDS: cloNIDine HCL 0.2 MG TABLET PO SCH (09:56)
[2020-12-01] MEDS: FUROSEMIDE 40 MG/4 ML VIAL. IVP SCH (09:56)
[2020-12-01] MEDS: METOPROLOL SUCC 24HR ER 100 MG TAB.ER.24H. PO SCH (09:56)
[2020-12-01] MEDS: INSULIN LISPRO 300 UNITS/3 ML VIAL. SQ SCH ×4 (09:57→12:46)
--- NOTE | 2020-12-01 10:23 | PDOC ---
DATE OF SERVICE DATE: 12/01/20 TIME: 10:23 SUBJECTIVE ROS Stable OBJECTIVE Vital Signs Vital Signs Date Time Temp Pulse Resp B/P (MAP) Pulse Ox O2 Delivery O2 Flow Rate FiO2 12/01/20 09:56 96 150/81 12/01/20 07:00 98.5 16 97 Room Air 98.5 12/01/20 03:00 2.0 I & 0 Intake and Output 12/01/20 07:00 Intake Total 1770 ml Output Total 3250 ml Balance -1480 ml Intake Oral 1770 ml Output Urine Total 3250 ml # Voids 3 PHYSICAL EXAM Physical Exam General: No acute distress HEENT: Atraumatic, PERRLA Lungs: Clear to auscultation Heart: Regular rate Abdomen: Normal bowel sounds, Soft, No tenderness Extremities: No clubbing Skin: No breakdown Neuro: Normal speech DIAGNOSIS/ASSESSMENT Assessment & Plan JADON - cardiorenal syndrome/ Use of NSAIDs- was on Mobic at home . Creat 2.1 <<-2.6 , avoid Overdiuresis, , supportive care , strict I/O CKD stage B - she had a referral to outpatient nephrology on 12/02/2020 Acute CHF POA - on IV lasix, Wt down (? accuracy) , monitor, avoid o verdiuresis, card managing Acute respiratory failure with hypoxia - likely due to pulmonary edema due to acute diastolic CHF. Hypertensive emergency POA - improved with IV hydralazine Anemia - likely of chronic disease Type [address] + COMMENT/RELEVANT DATA Meds Current Medications Medications (Trade) Dose Ordered Sig/Jocelyn Start Time Stop Time Status Last Admin Dose Admin Acetaminophen (Tylenol) 650 mg PRN Q6HRS PRN 11/29/20 15:30 11/30/20 10:39 650 MG Amlodipine Besylate (Norvasc) 10 mg DAILY 11/30/20 10:30 12/01/20 09:55 10 MG Aspirin (Kerri Aspirin) 325 mg 1X ONCE 11/29/20 16:15 11/29/20 16:18 DC 11/29/20 17:55 325 MG Aspirin (Ecotrin) 81 mg [id number] 11/30/20 10:30 12/01/20 09:55 81 MG Atorvastatin Calcium (Lipitor) 80 mg QHS 11/30/20 21:00 11/30/20 23:39 80 MG Clonidine HCl (Catapres) 0.2 mg BID 11/30/20 10:30 12/01/20 09:56 0.2 MG Dextrose (Dextrose 50%-Water Syringe) 12.5 gm PRN Q15MIN PRN 11/29/20 15:30 Furosemide (Lasix) 40 mg DAILY 11/30/20 10:30 12/01/20 09:56 40 MG Heparin Sodium (Porcine) (Heparin Sodium) 5,000 unit Q8HRS 11/29/20 22:00 12/01/20 06:04 5,000 UNIT Hydralazine HCl (Apresoline Inj) 10 mg PRN Q4HRS PRN 11/29/20 16:15 11/30/20 23:40 10 MG Insulin Glargine (Lantus Syringe) 50 unit QHS 11/29/20 21:00 11/30/20 23:47 50 UNIT Insulin Human Lispro (HumaLOG) 10 units TIDWMEALS 11/29/20 17:00 12/01/20 09:57 10 UNITS Metoprolol Succinate (Toprol Xl) 100 mg DAILY 11/30/20 10:30 12/01/20 09:56 100 MG Nitroglycerin (Nitrostat) 0.4 mg PRN Q5MIN PRN 11/29/20 16:15 Ondansetron HCl (Zofran) 4 mg PRN Q4HRS PRN 11/29/20 15:30 Zolpidem Tartrate (Ambien) 5 mg PRN QHS PRN 11/29/20 16:15 Lab Laboratory Tests Test 11/30/20 12:05 11/30/20 16:26 11/30/20 21:26 12/01/20 04:15 Glucose (Fingerstick) 211 mg/dL (70-99) 119 mg/dL (70-99) 251 mg/dL (70-99) Sodium Level 141 mmol/L (136-145) Potassium Level 4.6 mmol/L (3.5-5.1) Chloride Level 108 mmol/L (98-107) Carbon Dioxide Level 24 mmol/L (21-32) Anion Gap 9 (6-14) Blood Urea Nitrogen 44 mg/dL (7-20) Creatinine 2.1 mg/dL (0.6-1.0) Estimated GFR (Cockcroft-Gault) 29.7 Glucose Level 297 mg/dL (70-99) Calcium Level 8.6 mg/dL (8.5-10.1) Test 12/01/20 07:21 Glucose (Fingerstick) 190 mg/dL (70-99) Results All relevant outside records, renal labs, imaging studies, telemetry/EKG's were reviewed. Justicifation of Admission Dx: Justifications for Admission: Justification of Admission Dx: N/A DRE GREEN MD Dec 01, 2020 10:23
[2020-12-01 10:56] VITALS: BP 134/70
--- NOTE | 2020-12-01 11:43 | PDOC ---
[employer] PROGRESS NOTE Date of Service DOS: DATE: 12/01/20 TIME: 11:42 Chief Complaint Chief Complaint Acute respiratory failure with hypoxia - likely due to pulmonary edema due to acute diastolic CHF. Bronchitis on differential as well, though she does not use home inhalers, no smoke exposure no sick contacts. Will r/o COVID 19 breakthrough as well. Diurese with furosemide. Shortness of breath - Likely related to above from pulmonary edema and acute diastolic CHF from hypertension. Less likely infectious given insidious onset and sudden worsening. Will r/o DVT with venous dopplers and consider VQ scan, though tachcardia likely due to not taking toprol today Hypertensive emergency - with elevated troponin and JADON, improved with IV hydralazine, will cont prn JADON - recently noted, but has not improved. Likely vasomotor nephropathy from cardiorenal syndrome. Will attempt diuresis given clinical CHF symptoms with cardiology and nephrology consultation. She may have CKD from diabetic and hypertensive nephropathy underlying as well. Hyponatremia - likely hypervolemic. Will diurese. Consult nephrology for JADON vs CKD Elevated troponin - likely demand ischemia from BP and hypoxia, will trend. Maintain telemetry. Cont home ASA and BB. Severe protein calorie malnutrition - possibly low albumin state due to nephropa thy. Nephrology consulted Anemia - likely of chronic disease, will check iron levels Type 2 diabetes with hyperglycemia - will hold metformin for JADON. Basal bolus plus insulin while inpatient HLD - cont statin Glaucoma - continue nightly GTT Allergic rhinitis - cont home singulair History of Present Illness History of Present Illness Ms Paul is a 55 year old female w/ PMHx DM2, HTN, HLD, glaucoma who present to ER c/o progressive difficulty breathing with exertion and now at rest. She has had a white frothy cough for the last day. Patient denies any fever. She has had progressive weight gain, difficulty controlling her blood sugar and swelling of her abdomen and legs for the past month. No recent travel or sick contacts, no prolonged immobilization. Patient denies abdominal pain, no nausea vomiting. She does notice abdominal swelling associated with her leg swelling or shortness of breath. Difficulty getting a deep breath. Had [employer] Covid vaccine in May 2020. She does note based on recent labs she was told she has kidney injury and had a referral to outpatient nephrology coming up 12/02/2020 Initial vital signs temp 98.6 F pulse 123 beats minute respirations 32/min blood pressure 212/110 O2 saturation less than 88% on room air improved to 92% with 2 L nasal cannula oxygen. Given IV hydralazine with improvement of systolic blood pressure 184/89. Of note patient says she did not take any of her home medications today and does take metoprolol succinate 100 mg, amlodipine 10 mg, atorvastatin 80 mg, gabapentin 300 mg 3 times daily, chlorthalidone 50 mg daily, losartan 100 mg daily, Metformin 1000 mg twice daily, lispro 40 U every morning and Levemir 70 U nightly Travatan and latanoprost nightly and a baby aspirin daily. 11/30/2020: Patient currently breathing on room air, states she feels better. COVID-19 negative. She reports improvement in her leg swelling. Ultrasound showed no evidence of DVT. Will follow nephrology recommendations, stop Mobic and okay to continue Metformin and ARB as outpatient. Echocardiogram pending. Per cardiology, will continue diuresis and continue secondary prevention measures; ischemic evaluation as outpatient. Anticipate discharge likely tomorrow. 12/01: No complaints today. Reports improvement in her leg swelling. Okay to continue Metformin ARB, per nephrology. Discontinue HCTZ. Discharge patient home with endocrinology follow-up. Greater than 30 minutes spent managing the discharge of this patient. Vitals/I&O Vitals/I&O: Vital Signs Date Time Temp Pulse Resp B/P (MAP) Pulse Ox O2 Delivery O2 Flow Rate FiO2 12/01/20 10:56 98.9 86 16 134/70 (91) 99 Room Air 98.9 12/01/20 03:00 2.0 I & O 11/30/20 11/30/20 12/01/20 15:00 23:00 07:00 Intake Total 950 ml 420 ml 400 ml Output Total 2000 ml 1250 ml Balance 950 ml -1580 ml -850 ml Physical Exam General: Alert, Oriented X3, Cooperative, No acute distress Heart: Regular rate (SR), Normal S1, Normal S2, No murmurs Lungs: Crackles Abdomen: Soft, No tenderness Extremities: No cyanosis, Other (2+ bilateraal LE pitting edema) Skin: No breakdown, No significant lesion Labs Labs: Laboratory Tests Test 11/30/20 12:05 11/30/20 16:26 11/30/20 21:26 12/01/20 04:15 Glucose (Fingerstick) 211 mg/dL (70-99) 119 mg/dL (70-99) 251 mg/dL (70-99) Sodium Level 141 mmol/L (136-145) Potassium Level 4.6 mmol/L (3.5-5.1) Chloride Level 108 mmol/L (98-107) Carbon Dioxide Level 24 mmol/L (21-32) Anion Gap 9 (6-14) Blood Urea Nitrogen 44 mg/dL (7-20) Creatinine 2.1 mg/dL (0.6-1.0) Estimated GFR (Cockcroft-Gault) 29.7 Glucose Level 297 mg/dL (70-99) Calcium Level 8.6 mg/dL (8.5-10.1) Test 12/01/20 07:21 Glucose (Fingerstick) 190 mg/dL (70-99) Assessment and Plan Assessmemt and Plan Problems Medical Problems: (1) CHF exacerbation Status: Acute (2) Hypertensive urgency Status: Acute Comment Review of Relevant I have reviewed the following items ze (where applicable) has been applied. Medications: Current Medications Medications (Trade) Dose Ordered Sig/Jocelyn Route PRN Reason Start Time Stop Time Status Last Admin Dose Admin Atorvastatin Calcium (Lipitor) 80 mg QHS PO 11/30/20 21:00 11/30/20 23:39 Justifications for Admission Other Justification ED FIGUEROA MD Dec 01, 2020 11:43
--- NOTE | 2020-12-01 11:45 | PDOC3 ---
Discharge Summary Visit Information Date of Admission: Nov 29, 2020 Date of Discharge: Dec 01, 2020 Final Diagnosis Problems Medical Problems: (1) CHF exacerbation Status: Acute (2) Hypertensive urgency Status: Acute Brief Hospital Course Allergies Allergies Coded Allergies Type Severity Reaction Last Updated Verified codeine Allergy Intermediate rash 02/27/13 Yes Vital Signs Vital Signs Date Time Temp Pulse Resp B/P (MAP) Pulse Ox O2 Delivery O2 Flow Rate FiO2 12/01/20 10:56 98.9 86 16 134/70 (91) 99 Room Air 98.9 12/01/20 03:00 2.0 Lab Results Laboratory Tests Test 11/29/20 13:05 11/29/20 13:50 11/29/20 17:55 11/29/20 17:57 Urine Collection Type Unknown Urine Color Yellow Urine Clarity Clear Urine pH 7.0 (<5.0-8.0) Urine Specific [place] 1.015 (1.000-1.030) Urine Protein >=300 mg/dL (NEG-TRACE) Urine Glucose (UA) >=1000 mg/dL (NEG) Urine Ketones (Stick) Negative mg/dL (NEG) Urine Blood Moderate (NEG) Urine Nitrite Negative (NEG) Urine Bilirubin Negative (NEG) Urine Urobilinogen Dipstick 0.2 mg/dL (0.2 mg/dL) Urine Leukocyte Esterase Negative (NEG) Urine RBC 3-5 /HPF (0-2) Urine WBC Occ /HPF (0-4) Urine Squamous Epithelial Cells Few /LPF Urine Bacteria Moderate /HPF (0-FEW) Urine Random Total Protein 304.7 mg/dL (Not Establ.) White Blood Count 10.3 x10^3/uL (4.0-11.0) Red Blood Count 3.06 x10^6/uL (3.50-5.40) Hemoglobin 8.9 g/dL (12.0-15.5) Hematocrit 26.3 % (36.0-47.0) Mean Corpuscular Volume 86 fL (79-100) Mean Corpuscular Hemoglobin 29 pg (25-35) Mean Corpuscular Hemoglobin Concent 34 g/dL (31-37) Red Cell Distribution Width 13.3 % (11.5-14.5) Platelet Count 392 x10^3/uL (140-400) Neutrophils (%) (Auto) 80 % (31-73) Lymphocytes (%) (Auto) 10 % (24-48) Monocytes (%) (Auto) 7 % (0-9) Eosinophils (%) (Auto) 3 % (0-3) Basophils (%) (Auto) 1 % (0-3) Neutrophils # (Auto) 8.2 x10^3/uL (1.8-7.7) Lymphocytes # (Auto) 1.0 x10^3/uL (1.0-4.8) Monocytes # (Auto) 0.8 x10^3/uL (0.0-1.1) Eosinophils # (Auto) 0.3 x10^3/uL (0.0-0.7) Basophils # (Auto) 0.0 x10^3/uL (0.0-0.2) Sodium Level 134 mmol/L (136-145) Potassium Level 4.9 mmol/L (3.5-5.1) Chloride Level 101 mmol/L (98-107) Carbon Dioxide Level 21 mmol/L (21-32) Anion Gap 12 (6-14) Blood Urea Nitrogen 43 mg/dL (7-20) Creatinine 2.0 mg/dL (0.6-1.0) Estimated GFR (Cockcroft-Gault) 31.4 BUN/Creatinine Ratio 22 (6-20) Glucose Level 445 mg/dL (70-99) Lactic Acid Level 1.9 mmol/L (0.4-2.0) Calcium Level 8.6 mg/dL (8.5-10.1) Magnesium Level 1.8 mg/dL (1.8-2.4) Iron Level 34 ug/dL (50-170) Total Iron Binding Capacity 267 ug/dL (250-450) Iron Saturation 13 % (15-34) Total Bilirubin 0.8 mg/dL (0.2-1.0) Aspartate Amino Transf (AST/SGOT) 19 U/L (15-37) Alanine Aminotransferase (ALT/SGPT) 23 U/L (14-59) Alkaline Phosphatase 92 U/L (46-116) Troponin I Quantitative 0.109 ng/mL (0.000-0.055) 0.146 ng/mL (0.000-0.055) BT-Lfk-T-Type Natriuretic Peptide 3473 pg/mL (0-124) Total Protein 7.1 g/dL (6.4-8.2) Albumin 2.5 g/dL (3.4-5.0) Albumin/Globulin Ratio 0.5 (1.0-1.7) Vitamin B12 Level 650 pg/mL (247-911) Procalcitonin < 0.10 ng/mL (0.00-0.10) Thyroid Stimulating Hormone (TSH) 1.067 uIU/mL (0.358-3.74) Influenza Type A Antigen Negative (NEGATIVE) Influenza Type B Antigen Negative (NEGATIVE) SARS-CoV-2 RNA (OMERO) Negative (Negative) SARS-CoV-2 Antigen (Rapid) Negative (NEGATIVE) Glucose (Fingerstick) 446 mg/dL (70-99) Test 11/29/20 20:52 11/30/20 03:55 11/30/20 08:28 11/30/20 12:05 Glucose (Fingerstick) 265 mg/dL (70-99) 180 mg/dL (70-99) 211 mg/dL (70-99) Sodium Level 138 mmol/L (136-145) Potassium Level 4.5 mmol/L (3.5-5.1) Chloride Level 104 mmol/L (98-107) Carbon Dioxide Level 23 mmol/L (21-32) Anion Gap 11 (6-14) Blood Urea Nitrogen 46 mg/dL (7-20) Creatinine 2.0 mg/dL (0.6-1.0) Estimated GFR (Cockcroft-Gault) 31.4 Glucose Level 226 mg/dL (70-99) Hemoglobin A1c >15.5 % (4.8-5.6) Calcium Level 8.6 mg/dL (8.5-10.1) Troponin I Quantitative 0.244 ng/mL (0.000-0.055) Triglycerides Level 88 mg/dL (0-150) Cholesterol Level 173 mg/dL (0-200) LDL Cholesterol, Calculated 96 mg/dL (0-100) VLDL Cholesterol, Calculated 18 mg/dL (0-40) Non-HDL Cholesterol Calculated 114 mg/dL (0-129) HDL Cholesterol 59 mg/dL (40-60) Cholesterol/HDL Ratio 2.9 Test 11/30/20 16:26 11/30/20 21:26 12/01/20 04:15 12/01/20 07:21 Glucose (Fingerstick) 119 mg/dL (70-99) 251 mg/dL (70-99) 190 mg/dL (70-99) Sodium Level 141 mmol/L (136-145) Potassium Level 4.6 mmol/L (3.5-5.1) Chloride Level 108 mmol/L (98-107) Carbon Dioxide Level 24 mmol/L (21-32) Anion Gap 9 (6-14) Blood Urea Nitrogen 44 mg/dL (7-20) Creatinine 2.1 mg/dL (0.6-1.0) Estimated GFR (Cockcroft-Gault) 29.7 Glucose Level 297 mg/dL (70-99) Calcium Level 8.6 mg/dL (8.5-10.1) Laboratory Tests Test 11/30/20 12:05 11/30/20 16:26 11/30/20 21:26 12/01/20 04:15 Glucose (Fingerstick) 211 mg/dL (70-99) 119 mg/dL (70-99) 251 mg/dL (70-99) Sodium Level 141 mmol/L (136-145) Potassium Level 4.6 mmol/L (3.5-5.1) Chloride Level 108 mmol/L (98-107) Carbon Dioxide Level 24 mmol/L (21-32) Anion Gap 9 (6-14) Blood Urea Nitrogen 44 mg/dL (7-20) Creatinine 2.1 mg/dL (0.6-1.0) Estimated GFR (Cockcroft-Gault) 29.7 Glucose Level 297 mg/dL (70-99) Calcium Level 8.6 mg/dL (8.5-10.1) Test 12/01/20 07:21 Glucose (Fingerstick) 190 mg/dL (70-99) Brief Hospital Course Ms Paul is a 55 year old female w/ PMHx DM2, HTN, HLD, glaucoma who present to ER c/o progressive difficulty breathing with exertion and now at rest. She has had a white frothy cough for the last day. Patient denies any fever. She has had progressive weight gain, difficulty controlling her blood sugar and swelling of her abdomen and legs for the past month. No recent travel or sick contacts, no prolonged immobilization. Patient denies abdominal pain, no nausea vomiting. She does notice abdominal swelling associated with her leg swelling or shortness of breath. Difficulty getting a deep breath. Had Pfizer [place] in May 2020. She does note based on recent labs she was told she has kidney injury and had a referral to outpatient nephrology coming up 12/02/2020 Initial vital signs temp 98.6 F pulse 123 beats minute respirations 32/min blood pressure 212/110 O2 saturation less than 88% on room air improved to 92% with 2 L nasal cannula oxygen. Given IV hydralazine with improvement of systolic blood pressure 184/89. Of note patient says she did not take any of her home medications today and does take metoprolol succinate 100 mg, amlodipine 10 mg, atorvastatin 80 mg, gabapentin 300 mg 3 times daily, chlorthalidone 50 mg daily, losartan 100 mg daily, Metformin 1000 mg twice daily, lispro 40 U every morning and Levemir 70 U nightly Travatan and latanoprost nightly and a baby aspirin daily. 11/30/2020: Patient currently breathing on room air, states she feels better. COVID-19 negative. She reports improvement in her leg swelling. Ultrasound showed no evidence of DVT. Will follow nephrology recommendations, stop Mobic and okay to continue Metformin and ARB as outpatient. Echocardiogram pending. Per cardiology, will continue diuresis and continue secondary prevention measures; ischemic evaluation as outpatient. Anticipate discharge likely tomorrow. 12/01: No complaints today. Reports improvement in her leg swelling. Okay to continue Metformin ARB, per nephrology. Discontinue HCTZ. Discharge patient home with endocrinology follow-up. Greater than 30 minutes spent managing the discharge of this patient. Discharge Information Condition at Discharge: Improved Disposition/Orders: D/C to Home Scheduled Amlodipine Besylate (Amlodipine Besylate) 10 Mg Tablet, 10 MG PO DAILY for blood pressure, (Reported) Entered as Reported by: LASHAE FRASER RN on 11/29/202219 Last Action: Continued on 11/30/20924 by BERE WOODSON Atorvastatin Calcium (Atorvastatin Calcium) 80 Mg Tablet, 80 MG PO DAILY for FOR HIGH CHOLESTEROL, (Reported) Entered as Reported by: LASHAE FRASER RN on 11/29/202231 Last Action: Converted on 11/30/20924 by BERE WOODSON Cephalexin (Cephalexin) 500 Mg Tablet, 500 MG PO TID for infection, (Reported) Entered as Reported by: LASHAE FRASER RN on 11/29/202249 Last Action: New Order on 11/29/202249 by LASHAE FRASER RN Chlorthalidone (Chlorthalidone ) 25 Mg Tablet, 10 MG PO TID for DIURETIC, (Reported) Entered as Reported by: LASHAE FRASER RN on 11/29/202243 Last Action: HELD on 11/30/20924 by BERE WOODSON Clonidine Hcl (Clonidine Hcl) 0.2 Mg Tablet, 0.2 MG PO BID for BP, (Reported) Entered as Reported by: LASHAE FRASER RN on 11/29/202244 Last Action: Continued on 11/30/20924 by BERE WOODSON Cyclobenzaprine Hcl (Cyclobenzaprine Hcl) 10 Mg Tablet, 10 MG PO TID for muscle spasms, (Reported) Entered as Reported by: LASHAE FRASER RN on 11/29/202242 Last Action: New Order on 11/29/202242 by LASHAE FRASER RN Empagliflozin (Jardiance) 25 Mg Tablet, 25 MG PO DAILY for DM, (Reported) Entered as Reported by: LASHAE FRASER RN on 11/29/202233 Last Action: HELD on 11/30/20924 by BERE WOODSON Gabapentin (Gabapentin) 600 Mg Tablet, 600 MG PO TID for NEUROGENIC PAIN, (Reported) Entered as Reported by: LASHAE FRASER RN on 11/29/202242 Last Taken: 300 on Unknown Date & Time Last Action: New Order on 11/29/202242 by LASHAE FRASER RN Hydrocodone/Acetaminophen (Hydrocodone-Acetamin 5-325 mg) 1 Each Tablet, 1 EACH PO Q6HRS for 3 Days, #12 Prescribed by: AMELIE DELATORRE DO on 11/17/20 0950 Insulin Aspart (Novolog) 100 Unit/1 Ml Vial, 100 UNIT SQ BIDBFRMEAL for blood sugar, (Reported) Entered as Reported by: LASHAE FRASER RN on 11/29/202255 Last Action: New Order on 11/29/202255 by LASHAE FRASER RN Insulin Detemir (Levemir) 100 Unit/1 Ml Vial, 1 UNIT SQ BIDBFRMEAL for BS, (Reported) Entered as Reported by: LASHAE FRASER RN on 11/29/202255 Last Action: New Order on 11/29/202255 by LASHAE FRASER RN Meloxicam (Meloxicam) 15 Mg Tablet, 15 MG PO DAILY for Arthritis, (Reported) Entered as Reported by: LASHAE FRASER RN on 11/29/202247 Last Action: HELD on 11/30/20924 by BERE WOODSON Metformin Hcl (Metformin Hcl) 1,000 Mg Tablet, 1,000 MG PO BIDWMEALS for BS, (Reported) Entered as Reported by: LASHAE FRASER RN on 11/29/202248 Last Action: HELD on 11/30/20924 by BERE WOODSON Metoprolol Succinate (Metoprolol Succinate ( Xl )) 100 Mg Tab.er.24h, 100 MG PO DAILY for FOR HYPERTENSION, #30 Ref 0 (Reported) Entered as Reported by: LASHAE FRASER RN on 11/29/202246 Last Action: Continued on 11/30/20924 by BERE WOODSON Montelukast Sodium (Montelukast Sodium Tablet ) 10 Mg Tablet, 10 MG PO HS for FOR ASTHMA, Ref 0 (Reported) Entered as Reported by: LASHAE FRASER RN on 11/29/202232 Last Action: New Order on 11/29/202232 by LASHAE FRASER RN Stanley-3 Fatty Acids/Fish Oil (Stanley 3 Fish Oil Softgel) 1 Each Capsule.dr, 1 EACH PO DAILY for daily vitamin, (Reported) Entered as Reported by: LASHAE FRASER RN on 11/29/202233 Last Action: New Order on 11/29/202233 by LASHAE FRASER RN Justicifation of Admission Dx: Justifications for Admission: Justification of Admission Dx: Yes ED FIGUEROA MD Dec 01, 2020 11:45
[2020-12-01] MEDS ORDERED: FURO-68 PO (11:51)
--- NOTE | 2020-12-01 12:16 | PDOC ---
BERE WOODSON POWER CHECKER 12/01/20 1215: CARDIO Progress Notes Date and Time Date of Service 12/01/2020 Time of Evaluation 1100 Subjective Subjective: No Chest Pain, No shortness of breath, No Palpitations Vitals Vitals Vital Signs Date Time Temp Pulse Resp B/P (MAP) Pulse Ox O2 Delivery O2 Flow Rate FiO2 12/01/20 10:56 98.9 86 16 134/70 (91) 99 Room Air 98.9 12/01/20 03:00 2.0 Weight Weight [ ] Input and Output Intake and Output Intake and Output 12/01/20 07:00 Intake Total 1770 ml Output Total 3250 ml Balance -1480 ml Intake Oral 1770 ml Output Urine Total 3250 ml # Voids 3 Laboratory Labs Laboratory Tests Test 11/30/20 12:05 11/30/20 16:26 11/30/20 21:26 12/01/20 04:15 Glucose (Fingerstick) 211 mg/dL (70-99) 119 mg/dL (70-99) 251 mg/dL (70-99) Sodium Level 141 mmol/L (136-145) Potassium Level 4.6 mmol/L (3.5-5.1) Chloride Level 108 mmol/L (98-107) Carbon Dioxide Level 24 mmol/L (21-32) Anion Gap 9 (6-14) Blood Urea Nitrogen 44 mg/dL (7-20) Creatinine 2.1 mg/dL (0.6-1.0) Estimated GFR (Cockcroft-Gault) 29.7 Glucose Level 297 mg/dL (70-99) Calcium Level 8.6 mg/dL (8.5-10.1) Test 12/01/20 07:21 12/01/20 11:44 Glucose (Fingerstick) 190 mg/dL (70-99) 110 mg/dL (70-99) Microbiology Micro Microbiology 11/29/20 Blood Culture - Preliminary, Resulted NO GROWTH AFTER 1 DAY 11/29/20 Urine Culture - Final, Complete Physical Exam HEENT: Neck Supple W Full Motion Chest: Symmetric LUNGS: Clear to Auscultation Heart: S1S2, RRR (SR), no murmurs Abdomen: Soft N/T Extremities: Other (1+ bilateral LE pitting edema) Neurology: alert, oriented, follow commands Assessment Assessment 1. Acute diastolic CHF: much improved 2. NSTEMI: peaked troponin 0.2 suspect demand mediated. EF and WM via TTE 3. HTN urgency: controlled 4. Morbid obesity 5. DM2: uncontrolled A1C 15.5 Endocrinology follow up tomorrow morning 6. Hx of autonomic neuropathy 7. HLP 8. Suspect CKD3 9. Normocytic anemia likely from chronic disease Recommendations Secondary prevention measures Ischemic w/u as outpt 12/05 at 9AM and 10 AM the following day Stop meloxicam chlorthalidone, hold metformin stop losartan for now Continue home amlodipine and metoprolol. Hydralazine IV PRN. Also on home clonidine Will need FANTA w/u Lasix therapy. ASA May DC this afternoon from cardiac perspective HBPM Justicifation of Admission Dx: Justifications for Admission: Justification of Admission Dx: Yes LAURENT GOLDEN MD 12/01/202034: CARDIO Progress Notes Assessment Assessment Patient seen and examined. Agree with ADJUSTMENT SUPERVISOR's assessment and plan. Acute on chronic diast HF better compensated 2D echo showed normal LV systolic function NSTEMI probably demand ischemia Plan ischemic evaluation as outpatient BERE WOODSON APRN Dec 01, 2020 12:15 LAURENT GOLDEN MD Dec 01, 2020 20:35
--- NOTE | 2020-12-01 14:30 | NUR ---
Discharge Note: NATE CORDERO [address] Discharge instructions and discharge home medications reviewed with Patient and a copy given. All questions have been answered and understanding verbalized. The following instructions and handouts were given: HTN, DASH diet, CHF IV discontinued, no complications Patient discharged to home with self care. All belongings taken home with patient.
[2020-12-02] MEDS ORDERED: FUROSEMIDE 40 MG TABLET. PO SCH (09:00)
== END 2020-12-01 14:04 | disposition home or self-care (01) | DRG 280 ==
LOC: ER 12:41 → ED HOLD 16:32 → 6 SOUTH 17:15
PROVIDERS: ADMIT Internal Medicine; ATTEND Internal Medicine
DX: I21.4 Non-ST elevation (NSTEMI) myocardial infarction (principal); I50.31 Acute diastolic (congestive) heart failure; J96.01 Acute respiratory failure with hypoxia; N17.0 Acute kidney failure with tubular necrosis; E43 Unspecified severe protein-calorie malnutrition; E87.1 Hypo-osmolality and hyponatremia; I13.0 Hypertensive heart and chronic kidney disease with heart failure and stage 1 through stage 4 chronic kidney disease, or unspecified chronic kidney disease; I16.1 Hypertensive emergency; D63.8 Anemia in other chronic diseases classified elsewhere; E11.22 Type 2 diabetes mellitus with diabetic chronic kidney disease; E11.65 Type 2 diabetes mellitus with hyperglycemia; E66.01 Morbid (severe) obesity due to excess calories; E78.00 Pure hypercholesterolemia, unspecified; E78.5 Hyperlipidemia, unspecified; H40.9 Unspecified glaucoma; I25.10 Atherosclerotic heart disease of native coronary artery without angina pectoris; J45.909 Unspecified asthma, uncomplicated; M19.90 Unspecified osteoarthritis, unspecified site; N18.32 Chronic kidney disease, stage 3b; Z20.822 Contact with and (suspected) exposure to COVID-19; Z79.4 Long term (current) use of insulin; Z79.84 Long term (current) use of oral hypoglycemic drugs; Z79.899 Other long term (current) drug therapy; Z82.49 Family history of ischemic heart disease and other diseases of the circulatory system; Z83.3 Family history of diabetes mellitus; Z88.8 Allergy status to other drugs, medicaments and biological substances; Z68.37 Body mass index [BMI] 37.0-37.9, adult; Z98.51 Tubal ligation status
CPT/HCPCS: 36415; 71045; 80048; 80053; 80061; 81001; 82607; 82962; 83036; 83540; 83550; 83605; 83735; 83880; 84145; 84156; 84443; 84484; 85025; 87040; 87086; 87426; 87804; 93005; 93306; 93970; 96374; 96375; J0360; J1644; J1815; J1940; U0003; U0005; 99285-25; G0378